=== PATIENT | male | born 1945 | race Caucasian/White ===

== ENCOUNTER 2016-08-21 15:44 | Inpatient (IN) | payer MEDICARE ==
[~2016-08-21] VITALS: Ht 175.3 cm; Wt 84.8 kg
[2016-08-21 15:45] VITALS: BP 120/84; PULSE 106; RESP 18; TEMP 100.6; O2SAT 95
[2016-08-21 23:28] VITALS: BP 151/85; PULSE 98; RESP 18; TEMP 99; O2SAT 100
[2016-08-21] MEDS ORDERED: LISI10TA3 PO (23:30)
[2016-08-21] MEDS ORDERED: AMPICILLIN INJ 2,000 MG in SODIUM CHLORIDE 0.9% INJ 100 ML IV ONE (23:45)
[2016-08-21] MEDS ORDERED: cefTRIAXone INJ 2,000 MG in SODIUM CHLORIDE 0.9% INJ 100 ML IV ONE (23:45)
[2016-08-22] VITALS (8 sets, daily range): BP systolic 113–148; BP diastolic 68–82; PULSE 73–97; RESP 10–20; TEMP 97.9–100.7; O2SAT 94–97
[2016-08-22 00:06] LABS: AUTOMATED NEUTROPHIL # 7.6 TH/MM3 (1.8-7.7); BASOPHIL % 0.4 % (0.0-2.0); EOSINOPHIL # 0.1 TH/MM3 (0-0.4); EOSINOPHIL % 1.4 % (0.0-4.0); HEMATOCRIT 42.7 % (39.0-51.0); HEMO FLAGS DIFF FINAL; LYMPH % 15.6 % (9.0-44.0); LYMPHOCYTE # 1.6 TH/MM3 (1.0-4.8); MEAN CELL VOLUME 92.3 FL (80.0-100.0); MEAN CORPUSCULAR HEMOGLOBIN 31.4 PG (27.0-34.0); MONO % 6.9 % (0.0-8.0); NEUT % 75.7 % (16.0-70.0); PLATELET COUNT 218 TH/MM3 (150-450); RED BLOOD COUNT 4.63 MIL/MM3 (4.50-5.90)
[2016-08-22 00:12] LABS: APTT (PATIENT) 22.7 SEC (24.3-30.1); PROTHROMBIN TIME - PATIENT 11.3 SEC (9.8-11.6)
[2016-08-22 00:29] LABS: BICARBONATE 26.7 MEQ/L (21.0-32.0); POTASSIUM 4.2 MEQ/L (3.5-5.1)
[2016-08-22] MEDS ORDERED: MORPHINE SULFATE 4 MG/ML INJ IV PUSH ONE (00:30)
--- NOTE | 2016-08-22 00:34 | PD ---
HPI Chief Complaint: Headache Time Seen by Provider: 23:14 Travel History International Travel<30 days: No Contact w/Intl Traveler<30days: No Traveled to known affect area: No History of Present Illness HPI 71yo M with PMH of HTN was sent her by PMD Dr. Vides after being evaluated by him in his office. Pt has been treated recently for sinusitis by Dr. Vides. However, started having bilateral temporal headache. States he usually does not get headaches and went to [facility] this morning. Pt had negative CT scan of brain and was sent home. He went to Dr. Vides this afternoon and Dr. Vides felt that he was unwell and should come to the ED. Pt has been febrile. Denies any visual changes, n/v, abdominal pain, focal weakness or numbness. PFSH Social History Alcohol Use: No Tobacco Use: No Substance Use: No Allergies-Medications (Allergen,Severity, Reaction): Coded Allergies: No Known Allergies (Unverified , 08/22/16) Reported Meds & Prescriptions Reported Meds & Active Scripts Active Reported Lisinopril 10 Mg Tab 10 Mg PO DAILY Review of Systems Except as stated in HPI: all other systems reviewed are Neg Physical Exam Narrative GENERAL: 71yo M uncomfortable appearing. SKIN: Focused skin assessment warm/dry. HEAD: Atraumatic. Normocephalic. EYES: Pupils equal and round at 3mmg bilaterally. EOMI. No scleral icterus. No injection or drainage. ENT: No nasal bleeding or discharge. Mucous membranes pink and moist. NECK: Trachea midline. No JVD. CARDIOVASCULAR: Regular rate and rhythm. No murmur appreciated. RESPIRATORY: No accessory muscle use. Clear to auscultation. Breath sounds equal bilaterally. GASTROINTESTINAL: Abdomen soft, non-tender, nondistended. No rebound tenderness or guarding. MUSCULOSKELETAL: No obvious deformities. No clubbing. No cyanosis. No edema. NEUROLOGICAL: Awake and alert. No obvious cranial nerve deficits. Motor grossly within normal limits. Normal speech. PSYCHIATRIC: Appropriate mood and affect; insight and judgment normal. Data Data Last Documented VS Vital Signs Date Time Temp Pulse Resp B/P Pulse Ox O2 Delivery O2 Flow Rate FiO2 08/22/16 01:00 88 10 127/82 96 08/21/16 23:28 99.0 Orders Complete Blood Count With Diff (08/21/16 23:28) Basic Metabolic Panel (Bmp) (08/21/16 23:28) Westergren Sedimentation Rate (08/21/16 23:28) Prothrombin Time / Inr (Pt) (08/21/16 23:28) Act Partial Throm Time (Ptt) (08/21/16 23:28) Blood Culture (08/21/16 23:28) Group A Rapid Strep Screen (08/21/16 23:28) Influenzae A/B Antigen (08/21/16 23:28) Ceftriaxone Inj (Rocephin Inj) (08/21/16 23:45) Ampicillin Inj (Ampicillin Inj) (08/21/16 23:45) Vancomycin Inj (Vancomycin Inj) (08/21/16 23:45) Strep Culture (Group A) (08/21/16 23:45) Morphine Inj (Morphine Inj) (08/22/16 00:30) Admit Order (Ed Use Only) (08/22/16 01:01) Labs Laboratory Tests Test 08/21/16 23:20 White Blood Count 10.0 TH/MM3 Red Blood Count 4.63 MIL/MM3 Hemoglobin 14.5 GM/DL Hematocrit 42.7 % Mean Corpuscular Volume 92.3 FL Mean Corpuscular Hemoglobin 31.4 PG Mean Corpuscular Hemoglobin 34.0 % Concent Red Cell Distribution Width 13.0 % Platelet Count 218 TH/MM3 Mean Platelet Volume 8.7 FL Neutrophils (%) (Auto) 75.7 % Lymphocytes (%) (Auto) 15.6 % Monocytes (%) (Auto) 6.9 % Eosinophils (%) (Auto) 1.4 % Basophils (%) (Auto) 0.4 % Neutrophils # (Auto) 7.6 TH/MM3 Lymphocytes # (Auto) 1.6 TH/MM3 Monocytes # (Auto) 0.7 TH/MM3 Eosinophils # (Auto) 0.1 TH/MM3 Basophils # (Auto) 0.0 TH/MM3 CBC Comment DIFF FINAL Differential Comment Erythrocyte Sedimentation Rate 10 mm/hr Prothrombin Time 11.3 SEC Prothromb Time International 1.0 RATIO Ratio Activated Partial 22.7 SEC Thromboplast Time Sodium Level 135 MEQ/L Potassium Level 4.2 MEQ/L Chloride Level 99 MEQ/L Carbon Dioxide Level 26.7 MEQ/L Anion Gap 9 MEQ/L Blood Urea Nitrogen 15 MG/DL Creatinine 1.06 MG/DL Estimat Glomerular Filtration 69 ML/MIN Rate Random Glucose 113 MG/DL Calcium Level 8.9 MG/DL MDM Medical Decision Making Medical Screen Exam Complete: Yes Emergency Medical Condition: Yes Differential Diagnosis Meningitis vs. temporal arteritis vs. sinus headache Narrative Course 71yo M very uncomfortable appearing here with headache and fever. Pt has been treated for sinusitis recently and had Ct scan at [facility]. Pt was sent here by Dr. Vides for further evaluation, concerning for meningitis. I attempted to call Dr. Vides but was informed by call center that [facility] is admitting his patients today. Pt is mildly febrile and tachycardic at 100.6 and 106bpm. Labs reviewed, no leukocytosis. ESR 10. Pt given morphine for pain. Pt empirically given ceftriaxone 2gm, vancomycin 15mg/kg IV and ampicillin to cover listeria since pt is older than 50yo. I attempted lumbar puncture after obtaining consents. Unfortunately, it was unsuccessful so pt will need lumbar puncture by IR. Discussed with Dr. Nam and accepted to her service. Procedures Procedure Narrative LUMBAR PUNCTURE: The patient was placed in the sitting position. The lumbar area of the back was prepped with Betadine and sterilely draped. The L3 -- L4 interspace was infiltrated with 1% lidocaine plain. Number 20 gauge LP needle was placed in the interspace. Attempted 3 times but unsuccessful. Abandoned attempt. Diagnosis Primary Impression: Sepsis Qualified Code: A41.9 - Sepsis, due to unspecified organism Admitting Information Admitting Physician Requests: Admit MaryTraci DO Aug 22, 2016 00:34
[2016-08-22] MEDS ORDERED: MORPHINE SULFATE 4 MG/ML INJ IV PRN (01:15)
[2016-08-22] MEDS ORDERED: Vancomycin Consult Pharmacy 1 EA OTHER SCH (01:15)
[2016-08-22] MEDS ORDERED: BISACODYL 10 MG SUPP PR PRN (01:15)
[2016-08-22] MEDS ORDERED: SODIUM CHLORIDE 0.9% FLUSH 10 ML FLUSH IV FLUSH PRN (01:15)
[2016-08-22] MEDS ORDERED: ONDANSETRON HCL 4 MG/2 ML VIAL IVP PRN (01:15)
[2016-08-22] MEDS: VANCOMYCIN INJ 1,250 MG in SODIUM CHLOR 0.9% 250 ML INJ 250 ML IV ONE ×2 (01:28→02:08)
[2016-08-22] MEDS: SODIUM CHLOR 0.9% 1000 ML INJ 1,000 ML IV SCH ×3 (02:08→22:39)
[2016-08-22] MEDS ORDERED: VANCOMYCIN INJ 750 MG in SODIUM CHLOR 0.9% 250 ML INJ 250 ML IV ONE (03:00)
--- NOTE | 2016-08-22 03:46 | HHI.HP ---
[facility] Rainer Vides MD Admission Diagnosis Sepsis, r/o meningitis Diagnoses: (1) SIRS (systemic inflammatory response syndrome) Diagnosis: Principal (2) Headache Diagnosis: Principal (3) Fever Diagnosis: Principal Travel History International Travel<30 Days: No Contact w/Intl Traveler <30 Da: No Traveled to Known Affected Are: No History of Present Illness This is a 71-year-old male with a PMH of HTN who was sent to the ER by his PCP, Dr. Vides, for further evaluation of headache and fever. Has had c/o sinus pressure/congestion, started on treatment for Sinusitis. Today, had severe frontal headache, presented to ER s/p CT Head reportedly normal. Seen by Dr. Vides in office in the afternoon for ongoing complaints of headache and referred to ER for concern for meningitis. Pt denies nausea/vomiting or visual changes. On arrival, BP 120/84, HR 106, O2 sat 95% on RA, Temp 100.6. ESR normal. Chemistry unremarkable except for GFR of 69. INR 1.0. LP attempted by ER physician, however unsuccessful. S/p Blood Cultures and Strep-currently pending in addition to Vanc/Rocephin/Ampicillin. Review of Systems Except as stated in HPI: all other systems reviewed are Neg ROS: 14 point review of systems otherwise negative. Past Family Social History Past Medical History PMH: HTN Past Surgical History PAST SURGICAL HISTORY: None Allergies: Coded Allergies: No Known Allergies (Unverified , 08/21/16) Family History PAST FAMILY HISTORY: Reviewed. No h/o DM or CAD Social History PAST SOCIAL HISTORY: Negative for a call, tobacco or drugs. Physical Exam Vital Signs Vital Signs Date Time Temp Pulse Resp B/P Pulse Ox O2 Delivery O2 Flow Rate FiO2 08/22/16 02:00 84 14 115/68 94 08/22/16 01:00 88 10 127/82 96 08/21/16 23:28 99.0 98 18 151/85 100 08/21/16 15:45 100.6 106 18 120/84 95 Physical Exam PE: GENERAL: Elderly male in no acute distress, appears unwell. HEENT: PERRLA, EOMI. No scleral icterus or conjunctival pallor. No lid lag or facial droop. CARDIOVASCULAR: Regular rate and rhythm. No obvious murmurs to auscultation. No chest tenderness to palpation. RESPIRATORY: No obvious rhonchi or wheezing. Clear to auscultation. Breath sounds equal bilaterally. GASTROINTESTINAL: Abdomen soft, non-tender, nondistended. BS normal. MUSCULOSKELETAL: Extremities without clubbing, cyanosis, or edema. No obvious deformities. NEUROLOGICAL: Awake, alert and oriented x4. No focal neurologic deficits. Moving both upper and lower extremities spontaneously. Laboratory Laboratory Tests Test 08/21/16 23:20 White Blood Count 10.0 Red Blood Count 4.63 Hemoglobin 14.5 Hematocrit 42.7 Mean Corpuscular Volume 92.3 Mean Corpuscular Hemoglobin 31.4 Mean Corpuscular Hemoglobin 34.0 Concent Red Cell Distribution Width 13.0 Platelet Count 218 Mean Platelet Volume 8.7 Neutrophils (%) (Auto) 75.7 Lymphocytes (%) (Auto) 15.6 Monocytes (%) (Auto) 6.9 Eosinophils (%) (Auto) 1.4 Basophils (%) (Auto) 0.4 Neutrophils # (Auto) 7.6 Lymphocytes # (Auto) 1.6 Monocytes # (Auto) 0.7 Eosinophils # (Auto) 0.1 Basophils # (Auto) 0.0 CBC Comment DIFF FINAL Differential Comment Erythrocyte Sedimentation Rate 10 Prothrombin Time 11.3 Prothromb Time International 1.0 Ratio Activated Partial 22.7 Thromboplast Time Sodium Level 135 Potassium Level 4.2 Chloride Level 99 Carbon Dioxide Level 26.7 Anion Gap 9 Blood Urea Nitrogen 15 Creatinine 1.06 Estimat Glomerular Filtration 69 Rate Random Glucose 113 Calcium Level 8.9 Date/Time Procedure Status Source Growth 08/21/16 23:45 Group A Streptococcus Screen (STONEY) - Final Complete Throat 08/21/16 23:45 Group A Streptococcus Screen Received Throat Pending 08/21/16 23:40 Influenza Types A,B Antigen (STONEY) - Final Complete Nasal Aspirate NEGATIVE FOR FLU A AND B ANTIGEN.... 08/21/16 23:40 Aerobic Blood Culture Received Blood Peripheral Pending 08/21/16 23:40 Anaerobic Blood Culture Received Blood Peripheral Pending Result Diagram: 3/27/17 2320 3/27/17 2320 Assessment and Plan Problem List: (1) SIRS (systemic inflammatory response syndrome) ICD Code: R65.10 Status: Acute (2) Headache ICD Code: R51 Status: Acute (3) Fever ICD Code: R50.9 Status: Acute Assessment and Plan A/P: 1. SIRS: Temp 100.6, HR 106, WBC normal, Source-unclear, r/o Meningitis. S/p Blood Cultures, Strep, Vanc/Rocephin/Ampicillin in ER for possible Meningitis. LP attempted by ER physician, however unsuccessful, will consult IR for LP in am. Continue w/ IV Abx, IVF, follow up cultures, 2. Headache: Recently under treatment for Sinusitis by PCP, CT Head at 08/21 reportedly negative. No h/o chronic headache. Possibly related to sinusitis, however concern for meningitis as above-continue w/ treatment. Analgesics/antiemetics as needed. ESR 10. 3. Fever: Temp 100.6. Unclear source. Check U/a, Check CXR. 4. DVT Prophylaxis: SCD/Teds. 5. Social work for d/c planning as needed. 6. Case discussed w/ ER physician at length Physician Certification 2 Midnight Certification Type: Admission for Inpatient Services Order for Inpatient Services The services are ordered in accordance with Medicare regulations or non- Medicare payer requirements, as applicable. In the case of services not specified as inpatient-only, they are appropriately provided as inpatient services in accordance with the 2-midnight benchmark. Estimated LOS (days): 2 days is the estimated time the patient will need to remain in the hospital, assuming treatment plan goals are met and no additional complications. Post-Hospital Plan: Not yet determined Tia Nam MD Aug 22, 2016 03:46
[2016-08-22] MEDS: AMPICILLIN INJ 2,000 MG in SODIUM CHLORIDE 0.9% INJ 100 ML IV SCH ×5 (04:47→20:30)
[2016-08-22 05:32] LABS: ALKALINE PHOSPHATASE 63 U/L (45-117); TOTAL BILIRUBIN ADULT 0.6 MG/DL (0.2-1.0)
[2016-08-22 05:33] LABS: ANION GAP 8 MEQ/L (5-15)
[2016-08-22 05:34] LABS: ALT (GPT) 25 U/L (12-78); AST (GOT) 24 U/L (15-37); BICARBONATE 26.3 MEQ/L (21.0-32.0); BLOOD UREA NITROGEN 14 MG/DL (7-18); CHLORIDE 103 MEQ/L (98-107); GLOMERULAR FILTRATION RATE 72 ML/MIN (>89); SODIUM (NA) 137 MEQ/L (136-145)
[2016-08-22 05:35] LABS: AUTOMATED NEUTROPHIL # 6.3 TH/MM3 (1.8-7.7); BASOPHIL % 0.4 % (0.0-2.0); EOSINOPHIL # 0.2 TH/MM3 (0-0.4); EOSINOPHIL % 1.8 % (0.0-4.0); HEMO FLAGS DIFF FINAL; LYMPH % 22.7 % (9.0-44.0); LYMPHOCYTE # 2.2 TH/MM3 (1.0-4.8); MEAN CELL VOLUME 94.5 FL (80.0-100.0); MEAN CORPUSCULAR HEMOGLOBIN 30.7 PG (27.0-34.0); MEAN CORPUSCULAR HGB CONC 32.5 % (32.0-36.0); MONO % 8.8 % (0.0-8.0); NEUT % 66.3 % (16.0-70.0); PLATELET COUNT 177 TH/MM3 (150-450); RED BLOOD COUNT 4.33 MIL/MM3 (4.50-5.90); WHITE BLOOD COUNT 9.5 TH/MM3 (4.0-11.0)
[2016-08-22] MEDS: ACETAMINOPHEN/HYDROcodone 325 MG/5 MG TAB PO PRN ×4 (06:27→22:40)
--- NOTE | 2016-08-22 08:43 | HHI.PR ---
Subjective Remarks This is a 71-year-old male with a PMH of HTN who was sent to the ER by his PCP, Dr. Vides, for further evaluation of headache and fever. Has had c/o sinus pressure/congestion, started on treatment for Sinusitis. Today, had severe frontal headache, presented to ER s/p CT Head reportedly normal. Seen by Dr. Vides in office in the afternoon for ongoing complaints of headache and referred to ER for concern for meningitis. Pt denies nausea/vomiting or visual changes. On arrival, BP 120/84, HR 106, O2 sat 95% on RA, Temp 100.6. ESR normal. Chemistry unremarkable except for GFR of 69. INR 1.0. LP attempted by ER physician, however unsuccessful. S/p Blood Cultures and Strep-currently pending in addition to Vanc/Rocephin/Ampicillin. admitted today at this time going for Interventional Radiology Objective Vital Signs Date Time Temp Pulse Resp B/P Pulse Ox O2 Delivery O2 Flow Rate FiO2 08/22/16 06:00 77 12 118/69 97 08/22/16 04:00 73 12 122/73 97 08/22/16 02:00 84 14 115/68 94 08/22/16 01:00 88 10 127/82 96 08/21/16 23:28 99.0 98 18 151/85 100 08/21/16 15:45 100.6 106 18 120/84 95 Result Diagram: 08/22/16 0420 08/22/16 0420 Imaging No Imaging studies performed. Procedures Failed LP will have another later on toda Other Results Laboratory Tests Test 08/21/16 08/22/16 23:20 04:20 Erythrocyte Sedimentation Rate 10 mm/hr Prothrombin Time 11.3 SEC Prothromb Time International 1.0 RATIO Ratio Activated Partial 22.7 SEC Thromboplast Time White Blood Count 9.5 TH/MM3 Red Blood Count 4.33 MIL/MM3 Hemoglobin 13.3 GM/DL Hematocrit 41.0 % Mean Corpuscular Volume 94.5 FL Mean Corpuscular Hemoglobin 30.7 PG Mean Corpuscular Hemoglobin 32.5 % Concent Red Cell Distribution Width 13.0 % Platelet Count 177 TH/MM3 Mean Platelet Volume 8.3 FL Neutrophils (%) (Auto) 66.3 % Lymphocytes (%) (Auto) 22.7 % Monocytes (%) (Auto) 8.8 % Eosinophils (%) (Auto) 1.8 % Basophils (%) (Auto) 0.4 % Neutrophils # (Auto) 6.3 TH/MM3 Lymphocytes # (Auto) 2.2 TH/MM3 Monocytes # (Auto) 0.8 TH/MM3 Eosinophils # (Auto) 0.2 TH/MM3 Basophils # (Auto) 0.0 TH/MM3 CBC Comment DIFF FINAL Differential Comment Sodium Level 137 MEQ/L Potassium Level 5.0 MEQ/L Chloride Level 103 MEQ/L Carbon Dioxide Level 26.3 MEQ/L Anion Gap 8 MEQ/L Blood Urea Nitrogen 14 MG/DL Creatinine 1.02 MG/DL Estimat Glomerular Filtration 72 ML/MIN Rate Random Glucose 100 MG/DL Calcium Level 8.5 MG/DL Total Bilirubin 0.6 MG/DL Aspartate Amino Transf 24 U/L (AST/SGOT) Alanine Aminotransferase 25 U/L (ALT/SGPT) Alkaline Phosphatase 63 U/L Total Protein 6.5 GM/DL Albumin 3.1 GM/DL Objective Remarks GENERAL: Elderly male in no acute distress, appears unwell. HEENT: PERRLA, EOMI. No scleral icterus or conjunctival pallor. No lid lag or facial droop. CARDIOVASCULAR: Regular rate and rhythm. No obvious murmurs to auscultation. No chest tenderness to palpation. RESPIRATORY: No obvious rhonchi or wheezing. Clear to auscultation. Breath sounds equal bilaterally. GASTROINTESTINAL: Abdomen soft, non-tender, nondistended. BS normal. MUSCULOSKELETAL: Extremities without clubbing, cyanosis, or edema. No obvious deformities. NEUROLOGICAL: Awake, alert and oriented x4. No focal neurologic deficits. Moving both upper and lower extremities spontaneously. Medications and IVs Current Medications Medications (Trade) Dose Ordered Sig/Melissa Route Start Time Stop Time Status Last Admin Ceftriaxone Sodium 2000 mg/ Sodium Chloride 100 ml @ 200 mls/hr Q12H IV 08/22/16 13:00 Pharmacy Profile Note 0 ml @ 0 mls/hr UNSCH OTHER 08/22/16 01:15 Ampicillin Sodium 2000 mg/Sodium Chloride 100 ml @ 400 mls/hr Q4H IV 08/22/16 05:00 08/22/16 04:47 (NS 1000 ml Inj) 1,000 ml @ 100 mls/hr Q10H IV 08/22/16 01:14 08/22/16 02:08 (NS Flush) 2 ml UNSCH PRN IV FLUSH 08/22/16 01:15 (NS Flush) 2 ml BID IV FLUSH 08/22/16 09:00 (Zofran Inj) 4 mg Q6H PRN IVP 08/22/16 01:15 (Dulcolax Supp) 10 mg DAILY PRN NM 08/22/16 01:15 (Tylenol) 650 mg Q6H PRN PO 08/22/16 01:15 ([place] 5-325 Mg) 1 tab Q4H PRN PO 08/22/16 01:15 08/22/16 06:27 (Morphine Inj) 2 mg Q3H PRN IV 08/22/16 01:15 A/P Assessment and Plan 1. SIRS: Temp 100.6, HR 106, WBC normal, Source-unclear, r/o Meningitis. S/p Blood Cultures, Strep, Vanc/Rocephin/Ampicillin in ER for possible Meningitis. LP attempted by ER physician, however unsuccessful, will consult IR for LP in am. Continue w/ IV Abx, IVF, follow up cultures , Consult ID specialist. 2. Headache: Recently under treatment for Sinusitis by PCP, CT Head at 08/21 reportedly negative. No h/o chronic headache. Possibly related to sinusitis, however concern for meningitis as above-continue w/ treatment. Analgesics/antiemetics as needed. ESR 10. 3. Fever: Temp 100.6. Unclear source. Check U/a, Check CXR. DVT Prophylaxis: SCD/Teds. Social work for d/c planning as needed. Consulted ID specialist at this time also discussed with Doctor Vides is his attending physician and wants his patient back transferred to his service. Luisito Kraft MD Aug 22, 2016 08:43
--- NOTE | 2016-08-22 09:22 | RADRPT ---
EXAM DATE/TIME: 08/22/2016 08:51 [facility] COMPARISON: No previous studies available for comparison. INDICATIONS : Patient has had a headache for nine days. MEDICAL HISTORY : None. SURGICAL HISTORY : None. ENCOUNTER: Initial ACUITY: 1 day PAIN SCORE: 0/10 LOCATION: Bilateral chest FINDINGS: The cardiac silhouette is normal in transverse diameter. The aortic knob is prominent with tortuosity of the descending thoracic aorta. There are chronic fibrotic changes bilaterally. There is no evide nce of pneumonia. CONCLUSION: 1. Cardiomegaly. No acute pulmonary disease. Greg Clemens MD on August 22, 2016 at 9:19 Board Certified Radiologist. This report was verified electronically.
[2016-08-22] MEDS: SODIUM CHLORIDE 0.9% FLUSH 10 ML FLUSH IV FLUSH SCH ×2 (10:18→20:30)
--- NOTE | 2016-08-22 10:47 | PD.RAD ---
Post Procedure Progress Note Pre Procedure Diagnosis: (1) Headache (2) Fever Post Procedure Diagnosis: (1) Headache (2) Fever Procedure Date: Aug 22, 2016 Supervising Radiologist: Neil Quintanilla JR Proceduralist/Assist: Kali Long RT(R), Oliva Solano RT(R)(CV) Anesthesia: Local Plan of Activity Patient to Unit: Nursing Unit Patient Condition: Good See PACS Report for procedural detail/treatment Spinal Procedure Lumbar Puncture L3-L4 Fluid Removal (CCs): 11 Fluid Description: Clear Puncture Time: 10:38 Findings: Opening pressure: 16.6 cm H20 Clear CSF Sample to lab Jr. Dwight,Neil Burton MD Aug 22, 2016 10:47
[2016-08-22 12:00] LABS: GROSS BLOOD TUBE #1 0 (0); SUPERNATE COLOR TUBE #1 CLEAR (CLEAR)
[2016-08-22 12:01] LABS: CSF LYMPHOCYTES 90 %; CSF MONOCYTES 6 %; CSF NEUTROPHILS 4 %; GROSS BLOOD TUBE #2 0 (0); GROSS BLOOD TUBE #3 0 (0); GROSS BLOOD TUBE #4 0 (0); SUPERNATE COLOR TUBE #2 CLEAR (CLEAR); SUPERNATE COLOR TUBE #3 CLEAR (CLEAR); SUPERNATE COLOR TUBE #4 CLEAR (CLEAR); VOLUME TUBE # 3 2.5 ML; VOLUME TUBE # 4 3.1 ML; WBC TUBE #4 495 /MM3 (0-10)
--- NOTE | 2016-08-22 12:45 | MB ---
cc: FRANCHESCA LOCKHART MD DATE OF CONSULTATION 08/22/[address] Mayfield REASON FOR CONSULTATION Suspect meningitis HISTORY OF PRESENT ILLNESS This is a 71-year-old white male who was sent to the emergency department for evaluation of headache. The patient has been experiencing headaches for the past nine days. He also was having fevers and chills on a daily basis. His maximum temperature was 102 during that period. The patient was evaluated by his primary physician and was given antibiotics by mouth, but the headache did not improve after a few days of taking the antibiotics. He has also been taking Coricidin. He was evaluated in the emergency department and he underwent lumbar puncture. The count on the spinal fluid is not yet available. The patient notes that his headaches have been in the bitemporal area and also behind his eyes. He never experienced severe headaches in the past. He had a CT scan of the brain which was negative. He denies nausea or vomiting or diarrhea. He has had decreased appetite and has photophobia. He has had no exposure to sick persons and no travels outside of [place]. He denies mosquito bites. During my interview, the patient was having shaking chills. He was also noted to have night sweats with fever. The patient reports that prior to onset of the headache, he was working with friends cleaning out a garage and they had to break apart the garage door which was composed of fiberglass and he was exposed to fiberglass dust. PAST MEDICAL HISTORY 1. Hypertension 2. History of appendectomy. ALLERGIES NO KNOWN DRUG ALLERGIES. MEDICATIONS 1. Vancomycin 2. Ceftriaxone 3. Ampicillin 4. [place] 5 p.r.n. SOCIAL HISTORY The patient is . No tobacco use. No alcohol use. No illicit drugs. FAMILY HISTORY Noncontributory REVIEW OF SYSTEMS GENERAL: Significant for fever and chills. HEAD, EYES, EARS, NOSE, AND THROAT: Significant for photophobia. No visual blurring or diplopia. No nasal bleeding. Positive nasal sinus pressure. No difficulty swallowing or soreness of the throat. NECK: No swelling or pain. CARDIOVASCULAR: No palpitation or chest pain. RESPIRATORY: No cough or shortness of breath. GASTROINTESTINAL: No nausea, vomiting or abdominal pain. No diarrhea. GENITOURINARY: No urgency, frequency or dysuria. HEMATOPOIETIC: No easy bruising or bleeding. MUSCULOSKELETAL: No muscle aches or pains. ENDOCRINE: No polyuria or polydipsia. INTEGUMENTARY: No skin rash or itching. NEUROLOGIC: Significant for headaches. PSYCHIATRIC: No problems with depression or mood changes. PHYSICAL EXAMINATION This is a well-developed male who is in no acute distress, but he is in some distress because of the headaches. VITAL SIGNS: Include a temperature of 99 degrees, BP 118/69, respirations 16, heart rate 77. HEENT: Head is atraumatic. Extraocular movements grossly intact, pupils reactive to light. No icterus. Poor dentition. NECK: Supple without adenopathy or swelling. LUNGS: Decreased breath sounds bilateral. No rhonchi. HEART: Regular S1-S2 without audible murmurs or rubs or gallops. ABDOMEN: Bowel sounds present, soft, no tenderness appreciated. No masses palpable. RECTAL: Not performed. EXTREMITIES: No clubbing or cyanosis or edema. SKIN: No rash. NEUROLOGIC: No gross focal findings. PSYCH: The patient is calm and cooperative. LABORATORY DATA WBC 9.5, platelet count 177, 66% neutrophils, 22% lymphocytes, 8% monocytes, hemoglobin 13.3. Creatinine 1.02, BUN 14, sodium 137. Liver function tests normal. Lumbar puncture results pending. The CSF was reported to be clear. Chest x-ray showed no acute cardiopulmonary disease. IMPRESSION 1. Probable meningitis in a patient with headache along with fever and chills and photophobia. This could be partially treated bacterial meningitis versus viral meningitis. The patient was on antibiotics for sinusitis over the past few days. 2. Sepsis indicated by fever along with tachycardia and shaking Chills. 3. Possible temporal arteritis. However, the patient's sedimentation rate is normal at 10. RECOMMENDATIONS 1. Monitor blood cultures. 1. Monitor CSF studies and monitor CSF culture. 2. Continue vancomycin 3. Continue ampicillin 4. Continue ceftriaxone 5. Monitor clinical status Thank you for this consultation. The patient's progress will be monitored and further recommendations will be given on followup. Franchesca Lockhart MD FD/AMNAUEL /12:05 PM /12:26 PM [facility] HOSPITALYoselin
[2016-08-22] MEDS: cefTRIAXone INJ 2,000 MG in SODIUM CHLORIDE 0.9% INJ 100 ML IV SCH (13:16)
[2016-08-22] MEDS: VANCOMYCIN INJ 1,500 MG in SODIUM CHLORID 0.9% 500 ML INJ 500 ML IV SCH (15:05)
--- NOTE | 2016-08-22 16:00 | RADRPT ---
EXAM DATE/TIME: 08/22/2016 10:38 [facility] COMPARISON: No previous studies available for comparison. INDICATIONS : Patient presents with severe frontal headache in need of lumbar puncture with opening pressures to ru le out meningitis. MEDICAL HISTORY : HTN SURGICAL HISTORY : N/A ENCOUNTER: Initial ACUITY: 1 day PAIN SCORE: 0/10 LOCATION: N/A LUMBAR PUNCTURE TIME: 10:38 hours FLUORO TIME: 1.05 minutes IMAGE SERIES: 0 ACCESS LEVEL: L3-4 OPENING PRESSURE: 16.6 cm of water CLOSING PRESSURE: Not requested. FLUID: 11 cc of clear CSF was collected and sent to the laboratory for analysis. PROCEDURE : 1. Fluoroscopic guided lumbar puncture. 2. Recording of opening pressure. The risks, benefits and alternatives to the procedure were explained and verbal and written consent w as obtained. The site was prepped in sterile fashion. Full sterile technique was used, including ca p, mask, sterile gloves and gown and a large sterile sheet. Hand hygiene and 2% chlorhexidine and/or betadine/alcohol prep was utilized per protocol for cutaneous antisepsis. The skin and subcutaneous tissues were infiltrated with local anesthetic solution. With fluoroscopic guidance the lumbar thecal sac was punctured at the above level described above and the opening pressure was recorded. The above described fluid was removed without difficulty. The patient tolerated the procedure well and there were no complications. CONCLUSION: Uncomplicated fluoroscopically guided lumbar puncture with normal opening pressures. CSF sent to lab as requested. Neil Quintanilla Jr., MD on August 22, 2016 at 15:58 Board Certified Radiologist. This report was verified electronically.
[2016-08-22] MEDS: SODIUM CHLORIDE 0.9% IV SCH ×2 (17:24→23:52)
[2016-08-22] MEDS: ACYCLOVIR IV SCH ×2 (17:24→23:52)
[2016-08-22] MEDS: ACETAMINOPHEN 325 MG TAB PO PRN (18:32)
[2016-08-23] VITALS: BP 109/57; PULSE 86; RESP 18; TEMP 99; O2SAT 98
[2016-08-23] MEDS: AMPICILLIN INJ 2,000 MG in SODIUM CHLORIDE 0.9% INJ 100 ML IV SCH ×6 (01:18→21:00)
[2016-08-23] MEDS: ACETAMINOPHEN 325 MG TAB PO PRN (01:38)
[2016-08-23] MEDS: cefTRIAXone INJ 2,000 MG in SODIUM CHLORIDE 0.9% INJ 100 ML IV SCH ×2 (01:39→12:46)
[2016-08-23] MEDS: VANCOMYCIN INJ 1,500 MG in SODIUM CHLORID 0.9% 500 ML INJ 500 ML IV SCH ×2 (02:31→15:49)
[2016-08-23] MEDS: ACETAMINOPHEN/HYDROcodone 325 MG/5 MG TAB PO PRN ×5 (02:37→23:48)
[2016-08-23 04:00] VITALS: BP 117/58; PULSE 74; RESP 16; TEMP 97.5; O2SAT 97
[2016-08-23] MEDS: SODIUM CHLOR 0.9% 1000 ML INJ 1,000 ML IV SCH ×2 (07:14→17:14)
[2016-08-23] MEDS: SODIUM CHLORIDE 0.9% FLUSH 10 ML FLUSH IV FLUSH SCH ×2 (08:17→21:00)
[2016-08-23 08:27] VITALS: BP 130/78; PULSE 86; RESP 19; TEMP 98.4; O2SAT 99
[2016-08-23] MEDS: ACYCLOVIR IV SCH ×3 (09:47→23:50)
[2016-08-23] MEDS: SODIUM CHLORIDE 0.9% IV SCH ×3 (09:47→23:50)
--- NOTE | 2016-08-23 10:17 | HHI.FPPN ---
Subjective Remarks SEVERE PRINCE D/W AND PT AT [facility] D/W RN D/W DR MONREAL Objective Vitals Vital Signs Date Time Temp Pulse Resp B/P Pulse Ox O2 Delivery O2 Flow Rate FiO2 08/23/16 08:27 98.4 86 19 130/78 99 08/23/16 08:21 20 08/23/16 04:00 97.5 74 16 117/58 97 08/23/16 00:00 99.0 86 18 109/57 98 08/22/16 20:00 97.9 95 18 113/68 95 08/22/16 20:00 89 08/22/16 17:49 100.7 08/22/16 16:00 98.4 96 20 148/74 97 08/22/16 14:50 98.4 97 18 137/71 96 I/O 08/22/16 08/22/16 08/22/16 08/23/16 08/23/16 08/23/16 07:00 15:00 23:00 07:00 15:00 23:00 Intake Total 678 ml Output Total 0 ml Balance 678 ml Intake Oral 480 ml IV Total 198 ml Output Urine Total 0 ml # Bowel Movements 0 Result Diagram: 08/22/16 04208/22/160 Objective Remarks GENERAL: SKIN: Warm and dry. HEAD: Atraumatic. Normocephalic. EYES: Pupils equal and round. No scleral icterus. No injection or drainage. ENT: No nasal bleeding or discharge. Mucous membranes pink and moist. NECK: Trachea midline. No JVD. CARDIOVASCULAR: Regular rate and rhythm. RESPIRATORY: No accessory muscle use. Clear to auscultation. Breath sounds equal bilaterally. GASTROINTESTINAL: Abdomen soft, non-tender, nondistended. Hepatic and splenic margins not palpable. MUSCULOSKELETAL: Extremities without clubbing, cyanosis, or edema. No obvious deformities. NEUROLOGICAL: Awake and alert. No obvious cranial nerve deficits. Motor grossly within normal limits. 2 out of 5 muscle strength in the arms and legs. Normal speech. PSYCHIATRIC: Appropriate mood and affect; insight and judgment normal. Medications and IVs Current Medications Medications (Trade) Dose Ordered Sig/Melissa Route Start Time Stop Time Status Last Admin Ceftriaxone Sodium 2000 mg/ Sodium Chloride 100 ml @ 200 mls/hr Q12H IV 08/22/16 13:00 08/23/16 01:39 Pharmacy Profile Note 0 ml @ 0 mls/hr UNSCH OTHER 08/22/16 01:15 Ampicillin Sodium 2000 mg/Sodium Chloride 100 ml @ 400 mls/hr Q4H IV 08/22/16 05:00 08/23/16 08:17 (NS 1000 ml Inj) 1,000 ml @ 100 mls/hr Q10H IV 08/22/16 01:14 08/23/16 07:14 (NS Flush) 2 ml UNSCH PRN IV FLUSH 08/22/16 01:15 (NS Flush) 2 ml BID IV FLUSH 08/22/16 09:00 08/23/16 08:17 (Zofran Inj) 4 mg Q6H PRN IVP 08/22/16 01:15 (Dulcolax Supp) 10 mg DAILY PRN [place] 08/22/16 01:15 (Tylenol) 650 mg Q6H PRN PO 08/22/16 01:15 08/23/16 01:38 ([place] 5-325 Mg) 1 tab Q4H PRN PO 08/22/16 01:15 08/23/16 09:01 Morphine Sulfate 2 mg 2 mg Q3H PRN IV 08/22/16 01:15 08/23/16 08:16 (Vancomycin Inj/ NS 500 ml Inj) 515 ml @ 250 mls/hr Q12H IV 08/22/16 14:00 08/23/16 02:31 Miscellaneous Information SPECIFIC LAB TO BE DRAWN:VANCOMYCIN TROUGH DATE TO... ONCE ONCE XX 08/23/16 13:45 08/23/16 13:46 (Zovirax Inj/NS Inj) 150 ml @ 150 mls/hr Q8H IV 08/22/16 16:00 08/23/16 09:47 A/P Problem List: (1) Sepsis Status: Acute (2) Fever Status: Acute (3) Headache Status: Acute (4) SIRS (systemic inflammatory response syndrome) Status: Acute Plan: VIRAL MENINGITIS PLAN: IV ABX INCREASE MORPHINE IV ID CONSULT FOLLOWUP CULTURES AM LABS Problem Qualifiers (1) Sepsis: Qualified Code: A41.9 - Sepsis, due to unspecified organism Rainer Vides MD Aug 23, 2016 10:17
[2016-08-23] MEDS ORDERED: MORPHINE SULFATE 4 MG/ML INJ IV PRN ×2 (11:15→13:15)
[2016-08-23 12:03] VITALS: BP 117/70; PULSE 85; RESP 18; TEMP 98.1; O2SAT 97
[2016-08-23] MEDS ORDERED: PHARMACY ORDERED LAB XX ONE (13:45)
[2016-08-23 16:43] VITALS: BP 125/75; PULSE 78; RESP 18; TEMP 98.5; O2SAT 94
--- NOTE | 2016-08-23 16:43 | HHI.IDPN ---
Note Infectious Disease Note Patient had a terrible PRINCE this am. Now has only very little PRINCE. Feels a little better. Looks drowsy. Afebrile. Awake and alert. No nausea. Did not eat much today. PAST MEDICAL HISTORY 1. Hypertension 2. History of appendectomy. ALLERGIES NO KNOWN DRUG ALLERGIES. MEDICATIONS 1. Vancomycin 2. Ceftriaxone 3. Ampicillin 4. Acyclovir. OBJECTIVE: Vital Signs Date Time Temp Pulse Resp B/P Pulse Ox O2 Delivery O2 Flow Rate FiO2 08/23/16 15:59 18 08/23/16 14:42 15 08/23/16 12:29 18 08/23/16 12:03 98.1 85 18 117/70 97 08/23/16 08:27 98.4 86 19 130/78 99 08/23/16 08:21 20 08/23/16 04:00 97.5 74 16 117/58 97 08/23/16 00:00 99.0 86 18 109/57 98 08/22/16 20:00 97.9 95 18 113/68 95 08/22/16 20:00 89 08/22/16 17:49 100.7 08/22/16 08/22/16 08/23/16 15:00 23:00 07:00 Intake Total 678 ml Output Total 0 ml Balance 678 ml Intake Oral 480 ml IV Total 198 ml Output Urine Total 0 ml # Bowel Movements 0 Laboratory Tests Test 08/21/16 08/22/16 23:20 04:20 White Blood Count 10.0 TH/MM3 9.5 TH/MM3 Red Blood Count 4.63 MIL/MM3 4.33 MIL/MM3 Hemoglobin 14.5 GM/DL 13.3 GM/DL Hematocrit 42.7 % 41.0 % Mean Corpuscular Volume 92.3 FL 94.5 FL Mean Corpuscular Hemoglobin 31.4 PG 30.7 PG Mean Corpuscular Hemoglobin 34.0 % 32.5 % Concent Red Cell Distribution Width 13.0 % 13.0 % Platelet Count 218 TH/MM3 177 TH/MM3 Mean Platelet Volume 8.7 FL 8.3 FL Neutrophils (%) (Auto) 75.7 % 66.3 % Lymphocytes (%) (Auto) 15.6 % 22.7 % Monocytes (%) (Auto) 6.9 % 8.8 % Eosinophils (%) (Auto) 1.4 % 1.8 % Basophils (%) (Auto) 0.4 % 0.4 % Neutrophils # (Auto) 7.6 TH/MM3 6.3 TH/MM3 Lymphocytes # (Auto) 1.6 TH/MM3 2.2 TH/MM3 Monocytes # (Auto) 0.7 TH/MM3 0.8 TH/MM3 Eosinophils # (Auto) 0.1 TH/MM3 0.2 TH/MM3 Basophils # (Auto) 0.0 TH/MM3 0.0 TH/MM3 CBC Comment DIFF FINAL DIFF FINAL Differential Comment Erythrocyte Sedimentation Rate 10 mm/hr Laboratory Tests Test 08/21/16 08/22/16 23:20 04:20 Sodium Level 135 MEQ/L 137 MEQ/L Potassium Level 4.2 MEQ/L 5.0 MEQ/L Chloride Level 99 MEQ/L 103 MEQ/L Carbon Dioxide Level 26.7 MEQ/L 26.3 MEQ/L Anion Gap 9 MEQ/L 8 MEQ/L Blood Urea Nitrogen 15 MG/DL 14 MG/DL Creatinine 1.06 MG/DL 1.02 MG/DL Estimat Glomerular Filtration 69 ML/MIN 72 ML/MIN Rate Random Glucose 113 MG/DL 100 MG/DL Calcium Level 8.9 MG/DL 8.5 MG/DL Total Bilirubin 0.6 MG/DL Aspartate Amino Transf 24 U/L (AST/SGOT) Alanine Aminotransferase 25 U/L (ALT/SGPT) Alkaline Phosphatase 63 U/L Total Protein 6.5 GM/DL Albumin 3.1 GM/DL Microbiology Date/Time Procedure Status Source Growth 08/21/16 23:20 Aerobic Blood Culture - Preliminary Resulted Blood Peripheral NO GROWTH IN 2 DAYS 08/21/16 23:20 Anaerobic Blood Culture - Preliminary Resulted Blood Peripheral NO GROWTH IN 2 DAYS 08/21/16 23:40 Aerobic Blood Culture - Preliminary Resulted Blood Peripheral NO GROWTH IN 2 DAYS 08/21/16 23:40 Anaerobic Blood Culture - Final Resulted Blood Peripheral ONLY AEROBIC CULTURE ORDERED 08/21/16 23:40 Influenza Types A,B Antigen (STONEY) - Final Complete Nasal Aspirate NEGATIVE FOR FLU A AND B ANTIGEN.... 08/21/16 23:45 Group A Streptococcus Screen (STONEY) - Final Complete Throat 08/21/16 23:45 Group A Streptococcus Screen - Preliminary Resulted Throat BETA COLONIES?? 08/22/16 10:38 Gram Stain - Final Resulted Cerebral Spinal Fluid Lumbar Puncture 08/22/16 10:38 CSF Culture - Preliminary Resulted Cerebral Spinal Fluid Lumbar Puncture NO GROWTH IN 24 HOURS. PHYSICAL EXAMINATION GENERAL: No acute distress. HEENT: Head is atraumatic. Extraocular movements grossly intact, pupils reactive to light. No icterus. Poor dentition. NECK: Supple without adenopathy or swelling. LUNGS: Clear breath sounds. HEART: Regular S1-S2 without audible murmurs or rubs or gallops. ABDOMEN: Bowel sounds present, soft, no tenderness appreciated. No masses palpable. EXTREMITIES: No clubbing or cyanosis or edema. SKIN: No rash. NEUROLOGIC: Non focal. PSYCH: The patient is calm and cooperative. IMPRESSION 1. Meningitis Likely viral. Still having PRINCE. 2. Sepsis indicated by fever along with tachycardia and shaking Chills. RECOMMENDATIONS 1. Monitor blood cultures. 2. Monitor CSF studies and monitor CSF culture. 3. Stop vancomycin 4. Continue ampicillin 5. Continue ceftriaxone 6. Continue Acyclovir. 7. Monitor clinical status. Aníbal Lockhart MD Aug 23, 2016 16:43
[2016-08-23 20:00] VITALS: BP 128/70; PULSE 86; RESP 18; TEMP 98.5; O2SAT 95
[2016-08-24] VITALS: BP 120/63; PULSE 84; RESP 18; TEMP 98.7; O2SAT 98
[2016-08-24] MEDS: AMPICILLIN INJ 2,000 MG in SODIUM CHLORIDE 0.9% INJ 100 ML IV SCH ×6 (02:11→21:06)
[2016-08-24] MEDS: cefTRIAXone INJ 2,000 MG in SODIUM CHLORIDE 0.9% INJ 100 ML IV SCH ×2 (02:11→12:23)
[2016-08-24] MEDS: VANCOMYCIN INJ 1,500 MG in SODIUM CHLORID 0.9% 500 ML INJ 500 ML IV SCH (02:11)
[2016-08-24] MEDS: SODIUM CHLOR 0.9% 1000 ML INJ 1,000 ML IV SCH ×3 (03:14→23:14)
[2016-08-24] MEDS: ACETAMINOPHEN/HYDROcodone 325 MG/5 MG TAB PO PRN ×5 (03:48→21:08)
[2016-08-24 04:00] VITALS: BP 115/56; PULSE 77; RESP 16; TEMP 98.4; O2SAT 96
[2016-08-24 08:00] VITALS: BP 150/72; PULSE 78; PULSE 81; RESP 18; TEMP 99.9; O2SAT 97
[2016-08-24 08:11] LABS: AUTOMATED NEUTROPHIL # 6.3 TH/MM3 (1.8-7.7); BASOPHIL % 0.3 % (0.0-2.0); EOSINOPHIL # 0.2 TH/MM3 (0-0.4); EOSINOPHIL % 2.8 % (0.0-4.0); HEMATOCRIT 34.7 % (39.0-51.0); HEMO FLAGS DIFF FINAL; LYMPH % 17.2 % (9.0-44.0); LYMPHOCYTE # 1.5 TH/MM3 (1.0-4.8); MEAN CELL VOLUME 92.5 FL (80.0-100.0); MEAN CORPUSCULAR HEMOGLOBIN 31.3 PG (27.0-34.0); MEAN CORPUSCULAR HGB CONC 33.8 % (32.0-36.0); MONO % 7.8 % (0.0-8.0); NEUT % 71.9 % (16.0-70.0); PLATELET COUNT 187 TH/MM3 (150-450); RED BLOOD COUNT 3.75 MIL/MM3 (4.50-5.90); RED CELL DISTRIBUTION WIDTH 12.4 % (11.6-17.2); WHITE BLOOD COUNT 8.7 TH/MM3 (4.0-11.0)
[2016-08-24 08:13] LABS: POTASSIUM 4.3 MEQ/L (3.5-5.1)
[2016-08-24] MEDS: SODIUM CHLORIDE 0.9% IV SCH ×2 (08:34→16:40)
[2016-08-24] MEDS: ACYCLOVIR IV SCH ×2 (08:34→16:40)
[2016-08-24] MEDS: SODIUM CHLORIDE 0.9% FLUSH 10 ML FLUSH IV FLUSH SCH ×2 (08:34→21:00)
[2016-08-24 09:13] LABS: HSV 1,PCR Negative (Negative)
[2016-08-24 12:00] VITALS: BP 119/70; PULSE 97; RESP 18; TEMP 99.9; O2SAT 97
--- NOTE | 2016-08-24 15:37 | HHI.FPPN ---
Subjective Remarks CONF W AND PT PRINCE RECURRING SLEEPING SOME MS WORKING SOME D/W RN Objective Vitals Vital Signs Date Time Temp Pulse Resp B/P Pulse Ox O2 Delivery O2 Flow Rate FiO2 08/24/16 12:00 99.9 97 18 119/70 97 08/24/16 08:00 99.9 81 18 150/72 97 08/24/16 04:00 98.4 77 16 115/56 96 08/24/16 00:00 98.7 84 18 120/63 98 08/23/16 20:00 98.5 86 18 128/70 95 08/23/16 16:43 98.5 78 18 125/75 94 08/23/16 15:59 18 I/O 08/23/16 08/23/16 08/23/16 08/24/16 08/24/16 08/24/16 07:00 15:00 23:00 07:00 15:00 23:00 Intake Total 120 ml 352 ml Output Total 600 ml 200 ml 850 ml Balance -600 ml -80 ml -498 ml Intake Oral 120 ml 240 ml IV Total 112 ml Output Urine Total 600 ml 200 ml 850 ml # Voids 1 Result Diagram: 08/24/16 0700 08/24/16 0700 Objective Remarks GENERAL: SKIN: Warm and dry. HEAD: Atraumatic. Normocephalic. EYES: Pupils equal and round. No scleral icterus. No injection or drainage. ENT: No nasal bleeding or discharge. Mucous membranes pink and moist. NECK: Trachea midline. No JVD. CARDIOVASCULAR: Regular rate and rhythm. RESPIRATORY: No accessory muscle use. Clear to auscultation. Breath sounds equal bilaterally. GASTROINTESTINAL: Abdomen soft, non-tender, nondistended. Hepatic and splenic margins not palpable. MUSCULOSKELETAL: Extremities without clubbing, cyanosis, or edema. No obvious deformities. NEUROLOGICAL: Awake and alert. No obvious cranial nerve deficits. Motor grossly within normal limits. 2 out of 5 muscle strength in the arms and legs. Normal speech. PSYCHIATRIC: Appropriate mood and affect; insight and judgment normal. Medications and IVs Current Medications Medications (Trade) Dose Ordered Sig/Melissa Route Start Time Stop Time Status Last Admin Ceftriaxone Sodium 2000 mg/ Sodium Chloride 100 ml @ 200 mls/hr Q12H IV 08/22/16 13:00 08/24/16 12:23 Ampicillin Sodium 2000 mg/Sodium Chloride 100 ml @ 400 mls/hr Q4H IV 08/22/16 05:00 08/24/16 12:23 (NS 1000 ml Inj) 1,000 ml @ 100 mls/hr Q10H IV 08/22/16 01:14 08/24/16 12:24 (NS Flush) 2 ml UNSCH PRN IV FLUSH 08/22/16 01:15 (NS Flush) 2 ml BID IV FLUSH 08/22/16 09:00 08/23/16 21:00 (Zofran Inj) 4 mg Q6H PRN IVP 08/22/16 01:15 08/23/16 17:48 (Dulcolax Supp) 10 mg DAILY PRN [place] 08/22/16 01:15 (Tylenol) 650 mg Q6H PRN PO 08/22/16 01:15 08/23/16 01:38 Acetaminophen/ Hydrocodone Bitart 1 tab 1 tab Q4H PRN PO 08/22/16 01:15 08/24/16 12:29 (Zovirax Inj/NS Inj) 150 ml @ 150 mls/hr Q8H IV 08/22/16 16:00 08/24/16 08:34 (Morphine Inj) 4 mg Q3H PRN IV 08/23/16 13:15 08/23/16 11:49 (Morphine Inj) 4 mg Q4H PRN IV 08/23/16 11:15 08/23/16 15:52 A/P Problem List: (1) Sepsis Status: Acute (2) Fever Status: Acute (3) Headache Status: Acute (4) SIRS (systemic inflammatory response syndrome) Status: Acute Plan: VIRAL MENINGITIS SEPSIS PRINCE HTN PLAN: IV ABX MORPHINE IV ID CONSULT FOLLOWUP CULTURES AM LABS Problem Qualifiers (1) Sepsis: Qualified Code: A41.9 - Sepsis, due to unspecified organism Rainer Vides MD Aug 24, 2016 15:37
[2016-08-24 16:00] VITALS: BP 133/68; PULSE 79; RESP 18; TEMP 98.7; O2SAT 98
--- NOTE | 2016-08-24 17:41 | HHI.IDPN ---
Note Infectious Disease Note Patient has PRINCE 01/04. Same location. Afebrile. Awake and alert. No nausea. Diffuse body shakes but denies chills. CSF culture has no growth. PAST MEDICAL HISTORY 1. Hypertension 2. History of appendectomy. ALLERGIES NO KNOWN DRUG ALLERGIES. MEDICATIONS 1. Acyclovir. 2. Ceftriaxone 3. Ampicillin OBJECTIVE: Vital Signs Date Time Temp Pulse Resp B/P Pulse Ox O2 Delivery O2 Flow Rate FiO2 08/24/16 12:00 99.9 97 18 119/70 97 08/24/16 08:00 99.9 81 18 150/72 97 08/24/16 04:00 98.4 77 16 115/56 96 08/24/16 00:00 98.7 84 18 120/63 98 08/23/16 20:00 98.5 86 18 128/70 95 08/23/16 08/23/16 08/24/16 15:00 23:00 07:00 Intake Total 120 ml 352 ml Output Total 600 ml 200 ml 850 ml Balance -600 ml -80 ml -498 ml Intake Oral 120 ml 240 ml IV Total 112 ml Output Urine Total 600 ml 200 ml 850 ml # Voids 1 Laboratory Tests Test 08/24/16 07:00 White Blood Count 8.7 TH/MM3 Red Blood Count 3.75 MIL/MM3 Hemoglobin 11.7 GM/DL Hematocrit 34.7 % Mean Corpuscular Volume 92.5 FL Mean Corpuscular Hemoglobin 31.3 PG Mean Corpuscular Hemoglobin 33.8 % Concent Red Cell Distribution Width 12.4 % Platelet Count 187 TH/MM3 Mean Platelet Volume 8.6 FL Neutrophils (%) (Auto) 71.9 % Lymphocytes (%) (Auto) 17.2 % Monocytes (%) (Auto) 7.8 % Eosinophils (%) (Auto) 2.8 % Basophils (%) (Auto) 0.3 % Neutrophils # (Auto) 6.3 TH/MM3 Lymphocytes # (Auto) 1.5 TH/MM3 Monocytes # (Auto) 0.7 TH/MM3 Eosinophils # (Auto) 0.2 TH/MM3 Basophils # (Auto) 0.0 TH/MM3 CBC Comment DIFF FINAL Differential Comment Laboratory Tests Test 08/24/16 07:00 Sodium Level 137 MEQ/L Potassium Level 4.3 MEQ/L Chloride Level 104 MEQ/L Carbon Dioxide Level 28.0 MEQ/L Anion Gap 5 MEQ/L Blood Urea Nitrogen 10 MG/DL Creatinine 0.85 MG/DL Estimat Glomerular Filtration 89 ML/MIN Rate Random Glucose 98 MG/DL Calcium Level 8.3 MG/DL Microbiology Date/Time Procedure Status Source Growth 08/21/16 23:20 Aerobic Blood Culture - Preliminary Resulted Blood Peripheral NO GROWTH IN 3 DAYS 08/21/16 23:20 Anaerobic Blood Culture - Preliminary Resulted Blood Peripheral NO GROWTH IN 3 DAYS 08/21/16 23:40 Aerobic Blood Culture - Preliminary Resulted Blood Peripheral NO GROWTH IN 3 DAYS 08/21/16 23:40 Anaerobic Blood Culture - Final Resulted Blood Peripheral ONLY AEROBIC CULTURE ORDERED 08/21/16 23:40 Influenza Types A,B Antigen (STONEY) - Final Complete Nasal Aspirate NEGATIVE FOR FLU A AND B ANTIGEN.... 08/21/16 23:45 Group A Streptococcus Screen (STONEY) - Final Complete Throat 08/21/16 23:45 Group A Streptococcus Screen - Final Complete Throat NO GP A BETA STREP ISOLATED. 08/22/16 10:38 Gram Stain - Final Resulted Cerebral Spinal Fluid Lumbar Puncture 08/22/16 10:38 CSF Culture - Preliminary Resulted Cerebral Spinal Fluid Lumbar Puncture NO GROWTH IN 48 HOURS. IMAGING: Lumbar Puncture Fluoroscopy 08/22/16 0000 Signed Impressions: Service Date/Time: Monday, August 22, 2016 10:38 - CONCLUSION: Uncomplicated fluoroscopically guided lumbar puncture with normal opening pressures. CSF sent to lab as requested. Neil Quintanilla Jr., MD Chest X-Ray 08/22/16 0000 Signed Impressions: Service Date/Time: Monday, August 22, 2016 08:51 - CONCLUSION: 1. Cardiomegaly. No acute pulmonary disease. Greg Clemens MD PHYSICAL EXAMINATION GENERAL: No acute distress. HEENT: Head is atraumatic. Extraocular movements grossly intact, pupils reactive to light. No icterus. Poor dentition. NECK: Supple without adenopathy or swelling. LUNGS: Clear breath sounds. HEART: Regular S1-S2 without audible murmurs or rubs or gallops. ABDOMEN: Bowel sounds present, soft, no tenderness appreciated. No masses palpable. EXTREMITIES: No clubbing or cyanosis or edema. SKIN: No rash. NEUROLOGIC: Non focal. PSYCH: The patient is calm and cooperative. IMPRESSION 1. Meningitis Likely viral. Still having PRINCE. Negative culture. 2. Sepsis indicated by fever along with tachycardia and shaking Chills. RECOMMENDATIONS 1. Continue ampicillin 2. Continue ceftriaxone 3. Stop Acyclovir. HSV negative. 4. Monitor clinical status. 5. Consider repeating the MRI of brain if PRINCE persist. Aníbal Lockhart MD Aug 24, 2016 17:41
[2016-08-24 20:00] VITALS: BP 131/69; PULSE 82; RESP 18; TEMP 98.6; O2SAT 93
[2016-08-25] VITALS (7 sets, daily range): BP systolic 116–149; BP diastolic 56–80; PULSE 68–87; RESP 16–18; TEMP 98–99.7; O2SAT 94–98
[2016-08-25] MEDS: AMPICILLIN INJ 2,000 MG in SODIUM CHLORIDE 0.9% INJ 100 ML IV SCH ×6 (00:23→20:40)
[2016-08-25] MEDS: cefTRIAXone INJ 2,000 MG in SODIUM CHLORIDE 0.9% INJ 100 ML IV SCH ×2 (00:23→14:35)
[2016-08-25] MEDS: ACETAMINOPHEN/HYDROcodone 325 MG/5 MG TAB PO PRN ×4 (02:00→18:40)
[2016-08-25 06:22] LABS: AUTOMATED NEUTROPHIL # 5.9 TH/MM3 (1.8-7.7); BASOPHIL % 0.3 % (0.0-2.0); EOSINOPHIL # 0.2 TH/MM3 (0-0.4); EOSINOPHIL % 2.7 % (0.0-4.0); HEMATOCRIT 33.4 % (39.0-51.0); HEMO FLAGS DIFF FINAL; LYMPH % 15.3 % (9.0-44.0); LYMPHOCYTE # 1.2 TH/MM3 (1.0-4.8); MEAN CELL VOLUME 91.5 FL (80.0-100.0); MEAN CORPUSCULAR HEMOGLOBIN 31.5 PG (27.0-34.0); MEAN CORPUSCULAR HGB CONC 34.5 % (32.0-36.0); MONO % 6.4 % (0.0-8.0); NEUT % 75.3 % (16.0-70.0); PLATELET COUNT 194 TH/MM3 (150-450); RED BLOOD COUNT 3.64 MIL/MM3 (4.50-5.90); RED CELL DISTRIBUTION WIDTH 12.6 % (11.6-17.2); WHITE BLOOD COUNT 7.9 TH/MM3 (4.0-11.0)
[2016-08-25 06:37] LABS: BICARBONATE 27.1 MEQ/L (21.0-32.0); POTASSIUM 4.2 MEQ/L (3.5-5.1)
[2016-08-25] MEDS: SODIUM CHLORIDE 0.9% FLUSH 10 ML FLUSH IV FLUSH SCH ×2 (08:41→20:40)
[2016-08-25] MEDS: SODIUM CHLOR 0.9% 1000 ML INJ 1,000 ML IV SCH ×2 (08:41→19:14)
--- NOTE | 2016-08-25 10:35 | HHI.FPPN ---
Subjective Remarks still w PRINCE PAIN MEDS HELP MINIMAL PO D/W PT D/W Objective Vitals Vital Signs Date Time Temp Pulse Resp B/P Pulse Ox O2 Delivery O2 Flow Rate FiO2 08/25/16 08:00 99.5 82 18 121/56 98 08/25/16 04:00 98.4 71 16 116/58 95 08/25/16 00:00 99.7 87 18 131/66 96 08/24/16 21:11 Room Air 08/24/16 20:00 98.6 82 18 131/69 93 08/24/16 16:00 98.7 79 18 133/68 98 08/24/16 12:00 99.9 97 18 119/70 97 I/O 08/24/16 08/24/16 08/24/16 08/25/16 08/25/16 08/25/16 07:00 15:00 23:00 07:00 15:00 23:00 Intake Total 352 ml 686 ml 240 ml 480 ml Output Total 850 ml 800 ml 650 ml 300 ml Balance -498 ml -114 ml -410 ml 180 ml Intake Oral 240 ml 360 ml 240 ml 480 ml IV Total 112 ml 326 ml Output Urine Total 850 ml 800 ml 650 ml 300 ml # Bowel Movements 0 0 0 Result Diagram: 08/25/1651908/25/16519 Objective Remarks GENERAL: SKIN: Warm and dry. HEAD: Atraumatic. Normocephalic. EYES: Pupils equal and round. No scleral icterus. No injection or drainage. ENT: No nasal bleeding or discharge. Mucous membranes pink and moist. NECK: Trachea midline. No JVD. CARDIOVASCULAR: Regular rate and rhythm. RESPIRATORY: No accessory muscle use. Clear to auscultation. Breath sounds equal bilaterally. GASTROINTESTINAL: Abdomen soft, non-tender, nondistended. Hepatic and splenic margins not palpable. MUSCULOSKELETAL: Extremities without clubbing, cyanosis, or edema. No obvious deformities. NEUROLOGICAL: Awake and alert. No obvious cranial nerve deficits. Motor grossly within normal limits. 2 out of 5 muscle strength in the arms and legs. Normal speech. PSYCHIATRIC: Appropriate mood and affect; insight and judgment normal. Medications and IVs Current Medications Medications (Trade) Dose Ordered Sig/Melissa Route Start Time Stop Time Status Last Admin Ceftriaxone Sodium 2000 mg/ Sodium Chloride 100 ml @ 200 mls/hr Q12H IV 08/22/16 13:00 08/25/16 00:23 Ampicillin Sodium 2000 mg/Sodium Chloride 100 ml @ 400 mls/hr Q4H IV 08/22/16 05:00 08/25/16 08:39 (NS 1000 ml Inj) 1,000 ml @ 100 mls/hr Q10H IV 08/22/16 01:14 08/25/16 08:41 (NS Flush) 2 ml UNSCH PRN IV FLUSH 08/22/16 01:15 (NS Flush) 2 ml BID IV FLUSH 08/22/16 09:00 08/23/16 21:00 (Zofran Inj) 4 mg Q6H PRN IVP 08/22/16 01:15 08/23/16 17:48 (Dulcolax Supp) 10 mg DAILY PRN [place] 08/22/16 01:15 (Tylenol) 650 mg Q6H PRN PO 08/22/16 01:15 08/23/16 01:38 ([place] 5-325 Mg) 1 tab Q4H PRN PO 08/22/16 01:15 08/25/16 09:35 (Morphine Inj) 4 mg Q3H PRN IV 08/23/16 13:15 08/23/16 11:49 (Morphine Inj) 4 mg Q4H PRN IV 08/23/16 11:15 08/23/16 15:52 A/P Problem List: (1) Sepsis Status: Acute (2) Fever Status: Acute (3) Headache Status: Acute (4) SIRS (systemic inflammatory response syndrome) Status: Acute Plan: VIRAL MENINGITIS SEPSIS PRINCE HTN PLAN: MRI BRAIN IV ABX MORPHINE IV ID CONSULT FOLLOWUP CULTURES AM LABS Problem Qualifiers (1) Sepsis: Qualified Code: A41.9 - Sepsis, due to unspecified organism Rainer Vides MD Aug 25, 2016 10:35
[2016-08-25] MEDS ORDERED: GADODIAMIDE PF 287 MG/ML 20 ML VIAL (for RAD MRI) IV ONE (14:20)
--- NOTE | 2016-08-25 15:49 | RADRPT ---
EXAM DATE/TIME: 08/25/2016 13:36 [place] COMPARISON: No previous studies available for comparison. INDICATIONS : Meningitis. CONTRAST: 16 cc Omniscan (gadodiamide) IV MEDICAL HISTORY : Hypertension. SURGICAL HISTORY : Appendectomy. ENCOUNTER: Initial ACUITY: 2 day PAIN SCORE: 6/10 LOCATION: Head TECHNIQUE: Multiplanar, multisequence MRI of the brain was performed both prior to and following the administrat ion of paramagnetic contrast. FINDINGS: CEREBRUM: The ventricles are normal for age. No evidence of midline shift, mass lesion, hemorrhage or acute in farction. No extraaxial fluid collections are seen. The pituitary gland and suprasellar cistern are normal in configuration. WHITE MATTER: A few small scattered foci of high T2 signal abnormality involving the periventricular and subcortica l white matter of both cerebral hemispheres. No subcortical U fiber involvement or corpus callosal in volvement. POSTERIOR FOSSA: The cerebellum and brainstem are intact. The 4th ventricle is midline. The cerebellopontine angle is unremarkable. The cerebellar tonsils are normal in position. DIFFUSION IMAGING: No focal areas of restricted diffusion are seen. No evidence of acute infarction. EXTRACRANIAL: The visualized portions of the orbits and paranasal sinuses are unremarkable. POST-CONTRAST: No abnormal areas of parenchymal or dural enhancement. No evidence of blood-brain barrier breakdown. CONCLUSION: 1. No acute intracranial abnormality. 2. Mild chronic small vessel ischemic change. Neil Quintanilla Jr., MD on August 25, 2016 at 15:04 Board Certified Radiologist. This report was verified electronically.
[2016-08-25 16:09] LABS: LYME IGG IMMUNOBLOT CSF None Detected bands (None Detected); LYME IGM IMMUNOBLOT CSF None Detected bands (None Detected)
--- NOTE | 2016-08-25 16:35 | HHI.IDPN ---
Note Infectious Disease Note Patient continues to have PRINCE 01/04. Able to lay with head inclined 45% in bed. Seems a bit hard of hearing. Afebrile. Awake. Looks lethargic. Able to watch TV without difficulty. No nausea. Still get a little tremulous. CSF culture has no growth. MRI noted. PAST MEDICAL HISTORY 1. Hypertension 2. History of appendectomy. ALLERGIES NO KNOWN DRUG ALLERGIES. MEDICATIONS 1. Ampicillin. 2. Ceftriaxone OBJECTIVE: Vital Signs Date Time Temp Pulse Resp B/P Pulse Ox O2 Delivery O2 Flow Rate FiO2 08/25/16 12:00 98.3 86 18 133/69 94 08/25/16 08:00 99.5 82 18 121/56 98 08/25/16 04:00 98.4 71 16 116/58 95 08/25/16 00:00 99.7 87 18 131/66 96 08/24/16 21:11 Room Air 08/24/16 20:00 98.6 82 18 131/69 93 08/24/16 08/24/16 08/25/16 15:00 23:00 07:00 Intake Total 686 ml 240 ml 480 ml Output Total 800 ml 650 ml 300 ml Balance -114 ml -410 ml 180 ml Intake Oral 360 ml 240 ml 480 ml IV Total 326 ml Output Urine Total 800 ml 650 ml 300 ml # Bowel Movements 0 0 0 Laboratory Tests Test 08/24/16 08/25/16 07:00 05:20 White Blood Count 8.7 TH/MM3 7.9 TH/MM3 Red Blood Count 3.75 MIL/MM3 3.64 MIL/MM3 Hemoglobin 11.7 GM/DL 11.5 GM/DL Hematocrit 34.7 % 33.4 % Mean Corpuscular Volume 92.5 FL 91.5 FL Mean Corpuscular Hemoglobin 31.3 PG 31.5 PG Mean Corpuscular Hemoglobin 33.8 % 34.5 % Concent Red Cell Distribution Width 12.4 % 12.6 % Platelet Count 187 TH/MM3 194 TH/MM3 Mean Platelet Volume 8.6 FL 8.4 FL Neutrophils (%) (Auto) 71.9 % 75.3 % Lymphocytes (%) (Auto) 17.2 % 15.3 % Monocytes (%) (Auto) 7.8 % 6.4 % Eosinophils (%) (Auto) 2.8 % 2.7 % Basophils (%) (Auto) 0.3 % 0.3 % Neutrophils # (Auto) 6.3 TH/MM3 5.9 TH/MM3 Lymphocytes # (Auto) 1.5 TH/MM3 1.2 TH/MM3 Monocytes # (Auto) 0.7 TH/MM3 0.5 TH/MM3 Eosinophils # (Auto) 0.2 TH/MM3 0.2 TH/MM3 Basophils # (Auto) 0.0 TH/MM3 0.0 TH/MM3 CBC Comment DIFF FINAL DIFF FINAL Differential Comment Laboratory Tests Test 08/24/16 08/25/16 07:00 05:20 Sodium Level 137 MEQ/L 138 MEQ/L Potassium Level 4.3 MEQ/L 4.2 MEQ/L Chloride Level 104 MEQ/L 103 MEQ/L Carbon Dioxide Level 28.0 MEQ/L 27.1 MEQ/L Anion Gap 5 MEQ/L 8 MEQ/L Blood Urea Nitrogen 10 MG/DL 11 MG/DL Creatinine 0.85 MG/DL 0.72 MG/DL Estimat Glomerular Filtration 89 ML/MIN 108 ML/MIN Rate Random Glucose 98 MG/DL 97 MG/DL Calcium Level 8.3 MG/DL 8.0 MG/DL Microbiology Date/Time Procedure Status Source Growth 08/21/16 23:20 Aerobic Blood Culture - Preliminary Resulted Blood Peripheral NO GROWTH IN 3 DAYS 08/21/16 23:20 Anaerobic Blood Culture - Preliminary Resulted Blood Peripheral NO GROWTH IN 3 DAYS 08/21/16 23:40 Aerobic Blood Culture - Preliminary Resulted Blood Peripheral NO GROWTH IN 3 DAYS 08/21/16 23:40 Anaerobic Blood Culture - Final Resulted Blood Peripheral ONLY AEROBIC CULTURE ORDERED 08/21/16 23:40 Influenza Types A,B Antigen (STONEY) - Final Complete Nasal Aspirate NEGATIVE FOR FLU A AND B ANTIGEN.... 08/21/16 23:45 Group A Streptococcus Screen (STONEY) - Final Complete Throat 08/21/16 23:45 Group A Streptococcus Screen - Final Complete Throat NO GP A BETA STREP ISOLATED. 08/22/16 10:38 Gram Stain - Final Resulted Cerebral Spinal Fluid Lumbar Puncture 08/22/16 10:38 CSF Culture - Preliminary Resulted Cerebral Spinal Fluid Lumbar Puncture NO GROWTH IN 48 HOURS. IMAGING: Lumbar Puncture Fluoroscopy 08/22/16 0000 Signed Impressions: Service Date/Time: Monday, August 22, 2016 10:38 - CONCLUSION: Uncomplicated fluoroscopically guided lumbar puncture with normal opening pressures. CSF sent to lab as requested. Neil Quintanilla Jr., MD Chest X-Ray 08/22/16 0000 Signed Impressions: Service Date/Time: Monday, August 22, 2016 08:51 - CONCLUSION: 1. Cardiomegaly. No acute pulmonary disease. Greg Clemens MD PHYSICAL EXAMINATION GENERAL: No acute distress. HEENT: Head is atraumatic. Extraocular movements grossly intact, pupils reactive to light. No icterus. Poor dentition. NECK: Supple without adenopathy or swelling. LUNGS: Clear breath sounds. HEART: Regular S1-S2 without audible murmurs or rubs or gallops. ABDOMEN: Bowel sounds present, soft, no tenderness appreciated. No masses palpable. EXTREMITIES: No clubbing or cyanosis or edema. SKIN: No rash. NEUROLOGIC: Non focal. PSYCH: The patient is calm and cooperative. IMPRESSION 1. Meningitis Likely viral. Still having PRINCE. Negative culture. 2. Sepsis indicated by fever along with tachycardia and shaking Chills. Improved. RECOMMENDATIONS 1. Stop ampicillin 2. Continue ceftriaxone 3. Consult Neurology for persistent PRINCE. 4. Monitor clinical status. 5. OOB/ PT. Okay to send home when patient can ambulate and PRINCE controlled unless Neurology thinks otherwise. D/W . Aníbal Lockhart MD Aug 25, 2016 16:35
[2016-08-26] VITALS (7 sets, daily range): BP systolic 124–164; BP diastolic 67–86; PULSE 62–83; RESP 18–20; TEMP 97.9–99.3; O2SAT 96–100
[2016-08-26] MEDS: ACETAMINOPHEN/HYDROcodone 325 MG/5 MG TAB PO PRN ×4 (00:14→17:40)
[2016-08-26] MEDS: cefTRIAXone INJ 2,000 MG in SODIUM CHLORIDE 0.9% INJ 100 ML IV SCH ×2 (00:15→13:02)
[2016-08-26] MEDS: AMPICILLIN INJ 2,000 MG in SODIUM CHLORIDE 0.9% INJ 100 ML IV SCH ×3 (01:23→09:26)
[2016-08-26] MEDS: SODIUM CHLOR 0.9% 1000 ML INJ 1,000 ML IV SCH (05:08)
[2016-08-26] MEDS: SODIUM CHLORIDE 0.9% FLUSH 10 ML FLUSH IV FLUSH SCH ×2 (09:00→20:21)
[2016-08-26 09:25] LABS: AUTOMATED NEUTROPHIL # 6.4 TH/MM3 (1.8-7.7); BASOPHIL % 0.2 % (0.0-2.0); EOSINOPHIL # 0.2 TH/MM3 (0-0.4); EOSINOPHIL % 2.3 % (0.0-4.0); HEMATOCRIT 34.5 % (39.0-51.0); HEMO FLAGS DIFF FINAL; LYMPH % 14.6 % (9.0-44.0); LYMPHOCYTE # 1.2 TH/MM3 (1.0-4.8); MEAN CELL VOLUME 92.7 FL (80.0-100.0); MEAN CORPUSCULAR HEMOGLOBIN 30.8 PG (27.0-34.0); MEAN CORPUSCULAR HGB CONC 33.2 % (32.0-36.0); MONO % 7.3 % (0.0-8.0); NEUT % 75.6 % (16.0-70.0); PLATELET COUNT 211 TH/MM3 (150-450); RED BLOOD COUNT 3.72 MIL/MM3 (4.50-5.90); RED CELL DISTRIBUTION WIDTH 12.3 % (11.6-17.2); WHITE BLOOD COUNT 8.5 TH/MM3 (4.0-11.0)
--- NOTE | 2016-08-26 10:47 | HHI.PR ---
Subjective Remarks Patient is in bed. Says he has less headache, at bedside. Denies headache, n/v/d/c. No fevers oe chills. He is sleepy on/off during the day. Objective Vitals Vital Signs Date Time Temp Pulse Resp B/P Pulse Ox O2 Delivery O2 Flow Rate FiO2 08/26/16 09:27 20 08/26/16 08:21 98.5 69 18 137/67 98 08/26/16 04:00 98.3 74 18 151/73 97 08/26/16 00:00 99.3 83 18 155/86 96 08/25/16 20:16 68 08/25/16 20:00 83 08/25/16 20:00 Room Air 08/25/16 20:00 98.0 71 18 149/80 95 08/25/16 16:00 98.1 73 18 131/73 95 08/25/16 12:00 98.3 86 18 133/69 94 I/O 08/25/16 08/25/16 08/25/16 08/26/16 08/26/16 08/26/16 07:00 15:00 23:00 07:00 15:00 23:00 Intake Total 480 ml 360 ml 240 ml 832 ml Output Total 300 ml 450 ml 450 ml 500 ml Balance 180 ml -90 ml -210 ml 332 ml Intake Oral 480 ml 360 ml 240 ml 100 ml IV Total 732 ml Output Urine Total 300 ml 450 ml 450 ml 500 ml # Bowel Movements 0 0 0 Result Diagram: 08/26/16 0812 08/25/16 0520 Imaging Last Impressions Brain MRI 08/25/16 0000 Signed Impressions: Service Date/Time: Thursday, August 25, 2016 13:36 - CONCLUSION: 1. No acute intracranial abnormality. 2. Mild chronic small vessel ischemic change. Neil Quintanilla Jr., MD Lumbar Puncture Fluoroscopy 08/22/16 0000 Signed Impressions: Service Date/Time: Monday, August 22, 2016 10:38 - CONCLUSION: Uncomplicated fluoroscopically guided lumbar puncture with normal opening pressures. CSF sent to lab as requested. Neil Quintanilla Jr., MD Chest X-Ray 08/22/16 0000 Signed Impressions: Service Date/Time: Monday, August 22, 2016 08:51 - CONCLUSION: 1. Cardiomegaly. No acute pulmonary disease. Grge Clemens MD Objective Remarks GENERAL: Elderly male in no acute distress, appears unwell. HEENT: PERRLA, EOMI. No scleral icterus or conjunctival pallor. No lid lag or facial droop. CARDIOVASCULAR: Regular rate and rhythm. No obvious murmurs to auscultation. No chest tenderness to palpation. RESPIRATORY: No obvious rhonchi or wheezing. Clear to auscultation. Breath sounds equal bilaterally. GASTROINTESTINAL: Abdomen soft, non-tender, nondistended. BS normal. MUSCULOSKELETAL: Extremities without clubbing, cyanosis, or edema. No obvious deformities. NEUROLOGICAL: Awake, alert and oriented x4. No focal neurologic deficits. Moving both upper and lower extremities spontaneously. A/P Problem List: (1) SIRS (systemic inflammatory response syndrome) ICD Code: R65.10 Status: Acute (2) Headache ICD Code: R51 Status: Acute (3) Fever ICD Code: R50.9 Status: Acute Assessment and Plan 1. SIRS: Temp 100.6, HR 106, WBC normal, Source-unclear, r/o Meningitis. S/p Blood Cultures, Strep Continue Rocephin. Stop Ampicillin per ID recommendations Continue w/ IV Abx, IVF, follow up cultures, Consult ID specialist, Dr Lockhart. 2. Headache: Recently under treatment for Sinusitis by PCP, CT Head at 08/21 reportedly negative. No h/o chronic headache. Possibly related to sinusitis, however concern for meningitis as above-continue w/ treatment. Analgesics/antiemetics as needed. ESR 10. DVT Prophylaxis: SCD/Teds. Case management for d/c planning as needed. Consulted ID specialist recommends rocephin, consult neuro for persistent headache. Consult PT/OT for evaluation. Aurora Sawyer MD Aug 26, 2016 10:47
[2016-08-26 11:26] LABS: BICARBONATE 25.4 MEQ/L (21.0-32.0); POTASSIUM 3.9 MEQ/L (3.5-5.1)
[2016-08-26 17:51] LABS: VDRL CSF NON-REACTIVE (())
--- NOTE | 2016-08-26 19:54 | MB ---
cc: VALERIO OLIVA DATE OF CONSULTATION 08/26/16 A 71-year-old right-handed man with hypertension who had a headache for the last two weeks, a little bit of a stuffy nose. No diarrhea, rash or cough. No bug bite and came into the hospital. It turned out he had what appears to be viral meningitis. He had a headache and some fever, some congestion, was treated for sinusitis, no nausea, vomiting or diarrhea. PAST MEDICAL HISTORY Hypertension. REVIEW OF SYSTEMS Denies any of diabetes, hypercholesterolemia, myocardial infarction, coronary artery bypass graft, cardiac arrhythmia, stent, angioplasty, atrial fibrillation, Coumadin, renal, hepatic or pulmonary disease, thyroid disease, lupus, ulcer, cancer, seizure, stroke. SOCIAL HISTORY Not a smoker or drinker, lives with his . FAMILY HISTORY Negative for cancer, seizure or stroke. MEDICATIONS None. ALLERGIES NO KNOWN DRUG ALLERGIES. PHYSICAL EXAMINATION He had really been very healthy. VITAL SIGNS: Initially 100.6, generally afebrile now 151/70, 18, 70-137/67. NECK: There were no carotid bruits. HEART: Regular rhythm. I did not detect a murmur. I could not see his disks well. TM was clear on the right. He On the left, he has some cerumen. Visual jerez are full. Extraocular movements intact without nystagmus. Face symmetric with normal sensation. Tongue was midline. There is no drift. He had normal strength in upper and lower extremities bilaterally. DTRs are 2+ symmetric at the knees. Toes downgoing bilaterally. Pinprick was intact throughout. He is not ataxic on [id number]. Vibratory sense was intact. He is awake and alert. Speech is fluent. He is not aphasic. Kernig's sign is negative. Brudzinski sign is negative. Neck is supple. LABORATORY DATA CBC has been essentially normal except for mild anemia. Sed rate was 10. Basic metabolic profile is normal. LFTs normal. Total protein normal. Albumin 3.1. Coags are normal. LP showed 495 white cells, 20 red cells, 90% lymphocytes, 4% neutrophils, total protein is 78, glucose of 50. CSF VDRL and Lyme was negative. HSV PCRs were normal. Cultures from the CSF were normal. IMAGING STUDIES MRI of the brain done with and without contrast was normal. Mastoids looked fine. Chest x-ray showed some cardiomegaly, otherwise normal. IMPRESSION Viral meningitis. I think he looks fine at this time. I would stop the morphine. I would recommend stopping the ceftriaxone and the Hydrocodone unless Infectious Disease feels differently. We will see how his headache does off of narcotics and, if doing well, he could probably be discharged tomorrow. If he has a headache off narcotics, we will give him some steroids. Have PT ambulate him. MD YOUNG Diaz/ /7:32 PM /7:41 PM
--- NOTE | 2016-08-26 20:48 | MB ---
cc: VALERIO OLIVA DATE OF CONSULTATION 08/26/16 ADDENDUM I incorrectly stated in my laboratory section of my dictation that on his MRI his mastoids are fine. His maxillary sinuses were fine. The mastoids actually appear to have some amount of fluid. The sphenoid sinus looks open, but there is some fluid in the mastoids bilaterally. ENT consult could be considered. MD YOUNG Diaz/ /7:37 PM /8:45 PM
[2016-08-26] MEDS: ACETAMINOPHEN 325 MG TAB PO PRN (22:22)
[2016-08-27] VITALS (8 sets, daily range): BP systolic 139–176; BP diastolic 70–84; PULSE 45–86; RESP 18–20; TEMP 97.8–98.3; O2SAT 97–100
[2016-08-27] MEDS: cefTRIAXone INJ 2,000 MG in SODIUM CHLORIDE 0.9% INJ 100 ML IV SCH ×2 (00:28→12:55)
[2016-08-27] MEDS: ACETAMINOPHEN 325 MG TAB PO PRN ×3 (05:21→23:15)
[2016-08-27] MEDS: SODIUM CHLORIDE 0.9% FLUSH 10 ML FLUSH IV FLUSH SCH ×2 (08:49→21:00)
[2016-08-27 10:13] LABS: AUTOMATED NEUTROPHIL # 6.7 TH/MM3 (1.8-7.7); BASOPHIL % 0.3 % (0.0-2.0); EOSINOPHIL # 0.2 TH/MM3 (0-0.4); EOSINOPHIL % 1.9 % (0.0-4.0); HEMATOCRIT 35.6 % (39.0-51.0); HEMO FLAGS DIFF FINAL; LYMPH % 15.6 % (9.0-44.0); LYMPHOCYTE # 1.4 TH/MM3 (1.0-4.8); MEAN CELL VOLUME 91.7 FL (80.0-100.0); MEAN CORPUSCULAR HEMOGLOBIN 31.1 PG (27.0-34.0); MEAN CORPUSCULAR HGB CONC 33.9 % (32.0-36.0); MONO % 6.7 % (0.0-8.0); NEUT % 75.5 % (16.0-70.0); PLATELET COUNT 262 TH/MM3 (150-450); RED BLOOD COUNT 3.88 MIL/MM3 (4.50-5.90); RED CELL DISTRIBUTION WIDTH 12.5 % (11.6-17.2); WHITE BLOOD COUNT 8.9 TH/MM3 (4.0-11.0)
[2016-08-27 10:22] LABS: BICARBONATE 25.2 MEQ/L (21.0-32.0); POTASSIUM 3.9 MEQ/L (3.5-5.1)
--- NOTE | 2016-08-27 10:56 | HHI.PR ---
Objective Vital Signs Date Time Temp Pulse Resp B/P Pulse Ox O2 Delivery O2 Flow Rate FiO2 08/27/16 08:00 97.9 54 20 170/74 98 08/27/16 07:24 16 08/27/16 05:26 158/76 08/27/16 04:00 98.0 66 20 164/74 97 08/27/16 00:00 97.8 62 20 152/73 97 08/26/16 22:20 Room Air 08/26/16 20:00 97.9 62 20 164/75 97 08/26/16 18:48 20 08/26/16 18:45 66 08/26/16 16:00 98.6 70 18 151/70 100 08/26/16 12:22 98.0 68 18 156/77 100 I/O 08/26/16 08/26/16 08/26/16 08/27/16 08/27/16 08/27/16 07:00 15:00 23:00 07:00 15:00 23:00 Intake Total 832 ml 720 ml 1090 ml Output Total 500 ml 1000 ml 300 ml Balance 332 ml -280 ml 790 ml Intake Oral 100 ml 720 ml 240 ml IV Total 732 ml 850 ml Output Urine Total 500 ml 1000 ml 300 ml # Bowel Movements 0 Result Diagram: 08/27/16 0943 08/27/16 0943 Procedures Failed LP will have another later on toda Objective Remarks cannot hear finger rub bilat nl gait no nystagmus Assessment and Plan Assessment and Plan imp ent mastoiditis and make sure not parameningeal infxt or transverse sinus septic clot mrv and ent if mrv neg and ent clears could dc later today if steady on feet Greg Gaona MD Aug 27, 2016 10:56
--- NOTE | 2016-08-27 11:00 | HHI.PR ---
Subjective Remarks No acute events overnight. Afebrile, hypertensive to 170/74. Patient on lisinopril at home, not currently continued. Patient states that his headache is improved from yesterday. He did still have a headache overnight which was partially relieved with Tylenol and ice pack. He states that his hearing is "muffled" and that he feels dizzy upon standing. Objective Vitals Vital Signs Date Time Temp Pulse Resp B/P Pulse Ox O2 Delivery O2 Flow Rate FiO2 08/27/16 08:00 97.9 54 20 170/74 98 08/27/16 07:24 16 08/27/16 05:26 158/76 08/27/16 04:00 98.0 66 20 164/74 97 08/27/16 00:00 97.8 62 20 152/73 97 08/26/16 22:20 Room Air 08/26/16 20:00 97.9 62 20 164/75 97 08/26/16 18:48 20 08/26/16 18:45 66 08/26/16 16:00 98.6 70 18 151/70 100 08/26/16 12:22 98.0 68 18 156/77 100 I/O 08/26/16 08/26/16 08/26/16 08/27/16 08/27/16 08/27/16 07:00 15:00 23:00 07:00 15:00 23:00 Intake Total 832 ml 720 ml 1090 ml Output Total 500 ml 1000 ml 300 ml Balance 332 ml -280 ml 790 ml Intake Oral 100 ml 720 ml 240 ml IV Total 732 ml 850 ml Output Urine Total 500 ml 1000 ml 300 ml # Bowel Movements 0 Result Diagram: 08/27/16 0943 08/27/16 0943 Objective Remarks Gen.: No acute distress Head: Normocephalic. Atraumatic. EENT: Pupils equal round and reactive to light. Nose without drainage. Airway intact. Throat without injection. Cardiovascular: Regular rate and rhythm. No murmurs, rubs or gallops. Respiratory: Lungs clear to auscultation bilaterally. No wheezes or rhonchi. Abdomen: Soft, nontender, nondistended. No peritoneal signs. Musculoskeletal: No gross deformities. No edema. Skin: No obvious rashes or erythema. Neuro: Sensory and motor grossly intact. Cranial nerves II through XII grossly intact. Psych: Appropriate mood and affect A/P Problem List: (1) SIRS (systemic inflammatory response syndrome) ICD Code: R65.10 Status: Acute (2) Headache ICD Code: R51 Status: Acute (3) Fever ICD Code: R50.9 Status: Acute Assessment and Plan 1. SIRS: Temp 100.6, HR 106, WBC normal, Source-unclear, likely viral meningitis. S/p Blood Cultures, Strep Continue Rocephin. Stop Ampicillin per ID recommendations Continue w/ IV Abx, IVF, follow up cultures, Consult ID specialist, Dr Lockhart. 2. Headache: Recently under treatment for Sinusitis by PCP, CT Head at 08/21 reportedly negative. No h/o chronic headache. Possibly related to sinusitis, however concern for meningitis as above-continue w/ treatment. Analgesics/antiemetics as needed. ESR 10. 3. Mastoiditis: Consult ENT, MR venogram per neurology recommendations. 4. HTN: restarted home lisinopril 5. Deconditioning: Physical therapy consulted DVT Prophylaxis: SCD/Teds. Case management for d/c planning as needed. Consulted ID specialist recommends rocephin, consult neuro for persistent headache, recommend ENT consult. Consult PT/OT for evaluation. Diana Mancilla MD R3 Aug 27, 2016 11:00
[2016-08-27] MEDS ORDERED: MAGNESIUM HYDROXIDE SUSP 30 ML CUP PO ONE (12:15)
[2016-08-27] MEDS ORDERED: GADODIAMIDE PF 287 MG/ML 20 ML VIAL (for RAD MRI) IV ONE (12:27)
[2016-08-27] MEDS: LISINOPRIL 10 MG TAB PO SCH (12:54)
--- NOTE | 2016-08-27 13:57 | RADRPT ---
EXAM DATE/TIME: 08/27/2016 12:18 [facility] COMPARISON: MRI BRAIN W & W/O CONTRAST, August 25, 2016, 13:36. INDICATIONS : Cephalgia. CONTRAST: 20 cc Omniscan (gadodiamide) IV MEDICAL HISTORY : Hypertension. SURGICAL HISTORY : Appendectomy. ENCOUNTER: Initial ACUITY: 1 day PAIN SCORE: 7/10 LOCATION: cranial Please note a normal MRA of the brain does not entirely exclude the possibility of a small aneurysm, nor the possibility of distal intracranial vessel disease. TECHNIQUE: MR venography of the brain was performed with multiplanar and 3D reconstructions. FINDINGS: Superficial and deep venous systems are patent. CONCLUSION: Negative for deep venous occlusion. Bubba Gotti MD FACR on August 27, 2016 at 13:54 Board Certified Radiologist. This report was verified electronically.
[2016-08-27] MEDS: DOCUSATE SODIUM 50 MG/SENNA 8.6 MG TAB PO SCH (21:06)
[2016-08-28] VITALS: BP 115/57; PULSE 61; RESP 16; TEMP 98.2; O2SAT 94
[2016-08-28] MEDS: cefTRIAXone INJ 2,000 MG in SODIUM CHLORIDE 0.9% INJ 100 ML IV SCH (00:51)
[2016-08-28 01:40] VITALS: PULSE 72
[2016-08-28 04:00] VITALS: BP 145/87; PULSE 60; RESP 16; TEMP 97.8; O2SAT 98
[2016-08-28] MEDS: ACETAMINOPHEN 325 MG TAB PO PRN ×2 (07:01→14:49)
[2016-08-28 08:00] VITALS: BP 145/71; PULSE 46; RESP 18; TEMP 97; O2SAT 97
[2016-08-28 08:16] LABS: AUTOMATED NEUTROPHIL # 5.1 TH/MM3 (1.8-7.7); BASOPHIL % 0.5 % (0.0-2.0); EOSINOPHIL # 0.2 TH/MM3 (0-0.4); EOSINOPHIL % 2.3 % (0.0-4.0); HEMATOCRIT 34.2 % (39.0-51.0); HEMO FLAGS DIFF FINAL; LYMPH % 16.8 % (9.0-44.0); LYMPHOCYTE # 1.2 TH/MM3 (1.0-4.8); MEAN CELL VOLUME 90.7 FL (80.0-100.0); MEAN CORPUSCULAR HEMOGLOBIN 31.7 PG (27.0-34.0); MEAN CORPUSCULAR HGB CONC 34.9 % (32.0-36.0); NEUT % 71.4 % (16.0-70.0); PLATELET COUNT 251 TH/MM3 (150-450); RED BLOOD COUNT 3.77 MIL/MM3 (4.50-5.90); RED CELL DISTRIBUTION WIDTH 12.6 % (11.6-17.2); WHITE BLOOD COUNT 7.1 TH/MM3 (4.0-11.0)
[2016-08-28 08:39] LABS: BICARBONATE 25.5 MEQ/L (21.0-32.0); POTASSIUM 3.9 MEQ/L (3.5-5.1)
--- NOTE | 2016-08-28 08:44 | HHI.PR ---
Objective Vital Signs Date Time Temp Pulse Resp B/P Pulse Ox O2 Delivery O2 Flow Rate FiO2 08/28/16 04:00 97.8 60 16 145/87 98 08/28/16 01:40 72 08/28/16 00:09 16 08/28/16 00:00 98.2 61 16 115/57 94 08/27/16 21:06 Room Air 08/27/16 20:00 98.0 86 18 139/74 97 08/27/16 18:08 48 08/27/16 18:02 100 Room Air 08/27/16 16:00 98.3 45 20 150/70 100 08/27/16 12:00 98.0 60 20 176/84 100 I/O 08/27/16 08/27/16 08/27/16 08/28/16 08/28/16 08/28/16 07:00 15:00 23:00 07:00 15:00 23:00 Intake Total 360 ml 680 ml 0 ml Output Total 550 ml 1775 ml 300 ml Balance -190 ml -1095 ml -300 ml Intake Oral 360 ml 480 ml 0 ml IV Total 200 ml Output Urine Total 550 ml 1775 ml 300 ml # Bowel Movements 0 0 Result Diagram: 08/28/16 0735 08/28/16 0735 Objective Remarks nad awake alert Assessment and Plan Assessment and Plan imp mrv nl ent pend ok to dc when cleared by ent i Greg Pittman MD Aug 28, 2016 08:44
[2016-08-28] MEDS: SODIUM CHLORIDE 0.9% FLUSH 10 ML FLUSH IV FLUSH SCH (09:00)
[2016-08-28] MEDS: DOCUSATE SODIUM 50 MG/SENNA 8.6 MG TAB PO SCH (09:14)
[2016-08-28] MEDS: LISINOPRIL 10 MG TAB PO SCH (09:14)
[2016-08-28] MEDS ORDERED: NORC5TAB PO (10:06)
--- NOTE | 2016-08-28 10:07 | HHI.DCPOC ---
Discharge Care Plan Diagnosis: (1) Fever (2) Headache (3) SIRS (systemic inflammatory response syndrome) (4) Sepsis Goals to Promote Your Health * To prevent worsening of your condition and complications * To maintain your health at the optimal level Directions to Meet Your Goals Take your medications as prescribed Follow your dietary instruction Follow activity as directed Keep your appointments as scheduled Take your immunizations and boosters as scheduled If your symptoms worsen call your PCP, if no PCP go to Urgent Care Center or Emergency Room Smoking is Dangerous to Your Health. Avoid second hand smoke Call the 24-hour hour crisis hotline for domestic abuse at Rainer Vides MD Aug 28, 2016 10:07
--- NOTE | 2016-08-28 10:10 | HHI.DS ---
Discharge Summary Admission Date Aug 22, 2016 at 01:02 Discharge Date: Aug 28, 2016 Admitting Diagnosis Sepsis, r/o meningitis (1) SIRS (systemic inflammatory response syndrome) (2) Headache (3) Fever Procedures lp CBC/BMP: 08/28/16 0735 08/28/16 0735 Significant Findings Laboratory Tests Test 08/26/16 08/27/16 08/28/16 08:12 09:43 07:35 Red Blood Count 3.72 MIL/MM3 3.88 MIL/MM3 3.77 MIL/MM3 (4.50-5.90) (4.50-5.90) (4.50-5.90) Hemoglobin 11.5 GM/DL 12.1 GM/DL 11.9 GM/DL (13.0-17.0) (13.0-17.0) (13.0-17.0) Hematocrit 34.5 % 35.6 % 34.2 % (39.0-51.0) (39.0-51.0) (39.0-51.0) Neutrophils (%) (Auto) 75.6 % 75.5 % 71.4 % (16.0-70.0) (16.0-70.0) (16.0-70.0) Calcium Level 8.1 MG/DL 8.4 MG/DL 8.4 MG/DL (8.5-10.1) (8.5-10.1) (8.5-10.1) Sodium Level 135 MEQ/L (136-145) Random Glucose 108 MG/DL 107 MG/DL (74-106) (74-106) Monocytes (%) (Auto) 9.0 % (0.0-8.0) Imaging Last 72 hours Impressions Head/Brain Mag Res Venography 08/27/16 0000 Signed Impressions: Service Date/Time: Saturday, August 27, 2016 12:18 - CONCLUSION: Negative for deep venous occlusion. Bubba Gotti MD FACR PE at Discharge GENERAL: SKIN: Warm and dry. HEAD: Atraumatic. Normocephalic. EYES: Pupils equal and round. No scleral icterus. No injection or drainage. ENT: No nasal bleeding or discharge. Mucous membranes pink and moist. NECK: Trachea midline. No JVD. CARDIOVASCULAR: Regular rate and rhythm. RESPIRATORY: No accessory muscle use. Clear to auscultation. Breath sounds equal bilaterally. GASTROINTESTINAL: Abdomen soft, non-tender, nondistended. Hepatic and splenic margins not palpable. MUSCULOSKELETAL: Extremities without clubbing, cyanosis, or edema. No obvious deformities. NEUROLOGICAL: Awake and alert. No obvious cranial nerve deficits. Motor grossly within normal limits. Five out of 5 muscle strength in the arms and legs. Normal speech. PSYCHIATRIC: Appropriate mood and affect; insight and judgment normal. Hospital Course 71 Y CM. [place] OUTPT FOR SINUSITIS. SENT TO ER. LP DONE. VIRAL MENINGITIS DIAGNOSED. SEEN BY ENT, NEURO, ID. GROWTH ON CX IS NEG. PT AND REQ DC. Discharge Disposition: Disch w/ Home Health Serv Discharge Instructions DIET: Follow Instructions for: As Tolerated, No Restrictions Activities you can perform: Regular-No Restrictions Follow up Referrals: Ear Nose Throat - 09/04/[address] PATTERSON Neurology - 1 Week with Greg Gaona MD PCP Follow-up - 2-3 Days New Medications: Hydrocodone-Acetaminophen ([place]) 5-325 mg Tab 1 TAB PO Q4H PRN PAIN #21 Ref 0 TAB Continued Medications: Lisinopril (Lisinopril) 10 Mg Tab 10 MG PO DAILY #30 Ref 0 TAB Rainer Vides MD Aug 28, 2016 10:10
--- NOTE | 2016-08-28 10:58 | MB ---
cc: JERI PATTERSON M.D. DATE OF CONSULTATION 08/28/2016 REASON FOR ENT CONSULTATION Hearing loss with meningitis. HISTORY A 71-year-old male with history of hypertension, had headache for the past two weeks, was treated for sinusitis due to a "stuffy nose". His symptoms became worse including bitemporal headache. He was admitted and found to have viral meningitis. He has been undergoing treatment, has stabilized. His MRI was reviewed and showed his sinuses clear. It was felt on review that there might be some fluid at the mastoids and ENT consultation was obtained for evaluation The patient notes he has had a history of benign positional vertigo type symptoms in the past when he turns his head in the bed. These have resolved on their own. He was having these a little bit a few days before admission, although this is currently improved. He has no complaints of hearing loss bilaterally. PAST MEDICAL HISTORY History of hypertension. PHYSICAL EXAMINATION GENERAL: A well-developed male in no apparent distress. HEENT: Normocephalic, atraumatic. The external ear canal on the right is clear. The right tympanic membrane is clear with no fluid or retraction. The left canal shows partial cerumen impaction but the TM is not visible and shows no retraction or fluid level. The nasal exam shows no erythema, no purulence. Lips, oral mucosa and pharynx show no lesion. NECK: No significant mass. Trachea midline. ASSESSMENT A 71-year-old with meningitis. He does complain of hearing loss. He should follow up with an outpatient audiogram. Review of the MRI shows sinuses clear and the maxillary sinuses in particular are also quite clear. The mastoid areas do not show fluid. There is some very minimal old mastoid mucosal type thickening, no acute process here, and this is not consistent with bacterial source for infection. RECOMMENDATIONS Would recommend he follow up in the office as an outpatient to check his hearing, to see about the cerumen that partially blocks off the ear canal and also determine if he would benefit from physical therapy for benign positional vertigo. MD BAILEY Szymanski/DANIAL /6:45 AM /10:48 AM
[2016-08-28 12:00] VITALS: BP 123/58; PULSE 66; RESP 18; TEMP 97.9; O2SAT 97
== END 2016-08-28 15:28 | disposition home health service (06) | DRG 872 ==
LOC: NEPA 15:44 → NEDA 08-22 01:02 → NEDH 08-22 05:02 → N04B 08-22 13:50
PROVIDERS: ADMIT Family Medicine; ATTEND Family Medicine
PROC: 009U3ZX Drainage of Spinal Canal, Percutaneous Approach, Diagnostic (ICD-10-PCS; principal; 2016-08-22)
DX: A41.9 Sepsis, unspecified organism (principal); A87.9 Viral meningitis, unspecified; H70.90 Unspecified mastoiditis, unspecified ear; I10 Essential (primary) hypertension; H91.90 Unspecified hearing loss, unspecified ear
CPT/HCPCS: 62270; 70545; 70553; 71020; 76937; 77003; 80048; 80053; 80202; 82945; 84157; 85025; 85610; 85652; 85730; 86592; 86618; 87040; 87070; 87081; 87205; 87252; 87529; 87804; 87880; 89051; 96374; A9579; J0133; J0290; J0696; J2270; J2405; J3370; J7030; J7040; J7050